=== PATIENT | female | born 1935 | race Caucasian/White ===

== ENCOUNTER 2018-01-09 10:02 | Inpatient (IN) ==
--- OUTSIDE RECORDS SUMMARY | 2018-01-09 12:00 | External Medical Summary | Referral Summary ---
:1935 Author Organization [facility] Address [address] [place] [address] Care Team Providers Name Role Phone Rickie Nunez Primary Care Physician Encounter VC Date(s): 08/22/17 - 08/22/17 [facility] [address] [place] [address] [place] Discharge Diagnosis: Atrial fibrillation Discharge Diagnosis: Cardiomyopathy Discharge Diagnosis: Chronic CHF Discharge Diagnosis: Nocturnal hypoxemia Discharge Diagnosis: Asthma with COPD Discharge Disposition: 01-Home or Self Care Attending Physician: Rickie Perez MD Admitting Physician: Rickie Perez MD Vital Signs Most recent to oldest [Reference Range]: 1 Peripheral Pulse Rate [60-100 bpm] 90 bpm (08/22/17 2:27 PM) Respiratory Rate [14-20 br/min] 18 br/min (08/22/17 2:27 PM) Blood Pressure [90-140/60-90 mmHg] 146/82 mmHg *HI* (08/22/17 2:27 PM) SpO2 96 % (08/22/17 2:27 PM) Problem List Condition Effective Dates Status Health Status Informant Acute pain(Confirmed) Active Allergic rhinitis/Hay fever(Confirmed) Active Asthma(Confirmed) Active Asthma with COPD(Confirmed) Active At risk of pressure sore(Confirmed) Active Atrial fibrillation(Confirmed) Active Bleeding problems(Confirmed) Active Cardiomyopathy(Confirmed) Active Carpal tunnel syndrome(Confirmed) 1986 Active Chronic CHF(Confirmed) Active Urine infections(Confirmed) Active Thyroid disease/Goiter(Confirmed) Active Enthesopathy of ankle and Active tarsus(Confirmed) Pulmonary fibrosis(Confirmed) 1999 Active GERD (gastroesophageal reflux Active disease)(Confirmed) Gout(Confirmed) 2006 Active History of angina(Confirmed) Active Hearing loss(Confirmed) Active Hernias(Confirmed) 1972 Active Hypercholesterolemia(Confirmed) Active Hypertension(Confirmed) Active Nocturnal hypoxemia(Confirmed) Active Impaired gas exchange(Confirmed)1 Active Ingrowing nail(Confirmed) Active Ileus(Confirmed) 08/15/04 Active Irritable bowel syndrome Active (IBS)(Confirmed) Red measles(Confirmed) 194 Active Mumps(Confirmed) 195 Active Obesity(Confirmed) Active Dermatophytosis of nail(Confirmed) Active Osteoarthritis(Confirmed) Active Osteopenia(Confirmed) 1997 Active Pain in limb(Confirmed) Active Peripheral vascular disease(Confirmed) Active Whooping cough(Confirmed) 193 Active Arabic measles(Confirmed) 194 Active Smallpox(Confirmed) Active Trigger thumb Lt(Confirmed) Active Problems with swallowing and Active hiccuping(Confirmed) Tissue perfusion Active alteration(Confirmed)2 Chicken pox(Confirmed) 1945 Active 1Problem added automatically by system based on initiation of Impaired Gas Exchange Plan of [id number] added automatically by system based on initiation of Tissue Perfusion Cerebral Plan of Care Allergies, Adverse Reactions, Alerts Substance Reaction Severity Status allopurinol Active doxycycline Active dexamethasone rash, itchy Active DOBUTamine Active metoclopramide Active omeprazole Active levofloxacin Active cefdinir Active cilostazol Active valdecoxib Active amLODIPine Active Medications amiodarone 200 mg oral tablet 200 mg 1 tabs, Oral, BID, 0 Refill(s) Start Date: 08/05/17 Status: OrderedCalcium 600+D See Instructions, 1 tab daily, 0 Refill(s) Start Date: 02/20/14 Status: OrderedColace 100 mg oral capsule 100 mg 1 caps, Oral, BID, as needed for constipation, # 20 caps, 0 Refill(s) Start Date: 02/20/14 Status: Ordereddigoxin 125 mcg (0.125 mg) oral tablet 125 mcg 1 tabs, Oral, Daily, 0 Refill(s) Start Date: 08/05/17 Status: OrderedDulcolax Laxative 10 mg rectal suppository 10 mg 1 supp, Rectal, Daily, Constipation, 0 Refill(s) Start Date: 08/05/17 Status: OrderedDuoNeb 0.5 mg-2.5 mg/3 mL inhalation solution 3 mL, NEB, q2hr (scheduled), Bronchospasms, 0 Refill(s) Start Date: 08/05/17 Status: Orderedenalapril 10 mg oral tablet 10 mg 1 tabs, Oral, Daily, 0 Refill(s) Start Date: 08/05/17 Status: Orderedfamotidine 20 mg oral tablet 20 mg 1 tabs, Oral, Daily, 0 Refill(s) Start Date: 08/05/17 Status: Orderedfurosemide 40 mg oral tablet 40 mg 1 tabs, Oral, BID, 0 Refill(s) Start Date: 08/05/17 Status: OrderedHome Oxygen (DME) DME Item APRIA 2.5 LPM NOCTURNAL, See Instructions, # 1 Each, 0 Refill(s), Supply Start Date: 08/22/17 Status: OrderedLibrax 5 mg-2.5 mg oral capsule 1 caps, Oral, Daily, as needed, 0 Refill(s) Start Date: 02/20/14 Status: OrderedMilk of Magnesia 30 mL, Oral, Bedtime (once a day), 0 Refill(s) Start Date: 02/20/14 Status: OrderedMiraLax oral powder for reconstitution 17 g, Oral, Daily, dissolve in water before taking, # 255 g, 0 Refill(s) Start Date: 07/29/17 Status: Orderedmultivitamin Daily, 0 Refill(s) Start Date: 02/20/14 Status: OrderedPeri-Colace 50 mg-8.6 mg oral tablet 1 tabs, Oral, Bedtime (once a day), 0 Refill(s) Start Date: 02/20/14 Status: Orderedpotassium chloride 20 mEq/15 mL oral liquid 20 mEq 15 mL, Oral, BIDWM, 0 Refill(s) Start Date: 08/05/17 Status: OrderedPulmicort Respules 0.5 mg/2 mL inhalation suspension 0.5 mg 2 mL, NEB, BID, # 120 mL, 0 Refill(s) Start Date: 02/20/14 Status: OrderedSynthroid 100 mcg (0.1 mg) oral tablet 100 mcg 1 tabs, Oral, Daily, 0 Refill(s) Start Date: 02/20/14 Status: OrderedSystane Eye-Both, Bedtime (once a day), 0 Refill(s) Start Date: 02/20/14 Status: OrderedTylenol Extra Strength 500 mg, Oral, q6hr, Pain Mild (1-3), 0 Refill(s) Start Date: 02/20/14 Status: OrderedVentolin HFA 90 mcg/inh inhalation aerosol 2 puffs, Inhalation, q4hr, as needed for wheezing, 0 Refill(s) Start Date: 07/29/17 Status: Orderedwarfarin 5 mg oral tablet 5 mg 1 tabs, Oral, Daily, 0 Refill(s) Start Date: 08/05/17 Status: Ordered Immunizations Given and Recorded Vaccine Date Status Refusal Reason influenza virus vaccine, inactivated 05/21/16 Given pneumococcal 13-valent conjugate vaccine 06/10/15 Given pneumococcal 23-polyvalent vaccine 07/20/11 Recorded zoster vaccine live 01/19/08 Recorded tetanus-diphth toxoids (Td) adult/adol 02/18/06 Recorded Procedures Procedure Date Related Diagnosis Body Site Cardiac catheterization 01/22/08 Cervical biopsy 09/27/06 Biopsy of breast Lt 2002 Hernia repair-wentral w/mesh 2002 Hospital admission-asthma 2002 Cardiac catheterization 02/13/00 Hernia repair-ventral1 1999 Colonoscopy 05/12/99 Esophagogastroduodenoscopy 05/12/99 Esophagogastroduodenoscopy 10/24/96 Hernia repair2 1996 Colonoscopy 08/07/96 Colonoscopy 04/28/93 Dilation and curettage 1992 Carpal tunnel release3 1986 Trigger thumb of left hand 1985 Cholecystectomy 1983 Hernia repair-umbilical, hiatal x3 1983 Procedure-esophogoscopy 06/09/76 Surgery-thyroid 1975 Procedure-esophogoscopy 06/21/73 Dilation and curettage 1972 section 1969 Procedure-bilateral greater and lesser sophemous 1960 ligation Appendectomy 1953 Tonsillectomy 1947 1see conversion [id number] conversion [id number] carpal tunnel and ulnar nerve compression-see conversion document Social History Social History Type Response Smoking Status Never (less than 100 in lifetime) entered on: 07/29/17
--- OUTSIDE RECORDS SUMMARY | 2018-01-09 12:01 | External Medical Summary | Referral Summary ---
:1935 Author Organization [facility] Address [address] [place] [address] Care Team Providers Name Role Phone Rickie Nunez Primary Care Physician Encounter VC Date(s): 07/29/17 - 07/29/17 [facility] [address] [place] [id number] Discharge Diagnosis: Atrial fibrillation with rapid ventricular response Discharge Diagnosis: Allergic rhinitis/Hay fever Discharge Diagnosis: Asthma with COPD Discharge Diagnosis: Nocturnal hypoxemia Discharge Diagnosis: Obesity Discharge Diagnosis: Physical deconditioning Discharge Disposition: 01-Home or Self Care Attending Physician: Rickie Perez MD Admitting Physician: Rickie Perez MD Vital Signs Most recent to oldest [Reference Range]: 1 Peripheral Pulse Rate [60-100 bpm] 124 bpm *HI* (07/29/17 9:03 AM) Respiratory Rate [14-20 br/min] 22 br/min *HI* (07/29/17 9:03 AM) Blood Pressure [90-140/60-90 mmHg] 118/62 mmHg (07/29/17 9:03 AM) SpO2 95 % (07/29/17 9:03 AM) Problem List Condition Effective Dates Status Health Status Informant Allergic rhinitis/Hay fever(Confirmed) Active Asthma(Confirmed) Active Asthma with COPD(Confirmed) Active At risk of pressure sore(Confirmed) Active Bleeding problems(Confirmed) Active Carpal tunnel syndrome(Confirmed) 1986 Active Urine infections(Confirmed) Active Thyroid disease/Goiter(Confirmed) Active Enthesopathy of ankle and Active tarsus(Confirmed) Pulmonary fibrosis(Confirmed) 1999 Active GERD (gastroesophageal reflux Active disease)(Confirmed) Gout(Confirmed) 2006 Active History of angina(Confirmed) Active Hearing loss(Confirmed) Active Hernias(Confirmed) 1971 Active Hypercholesterolemia(Confirmed) Active Hypertension(Confirmed) Active Nocturnal hypoxemia(Confirmed) Active Impaired gas exchange(Confirmed)1 Active Ingrowing nail(Confirmed) Active Ileus(Confirmed) 08/15/04 Active Irritable bowel syndrome Active (IBS)(Confirmed) Red measles(Confirmed) 194 Active Mumps(Confirmed) 1953 Active Obesity(Confirmed) Active Dermatophytosis of nail(Confirmed) Active Osteoarthritis(Confirmed) Active Osteopenia(Confirmed) 1997 Active Pain in limb(Confirmed) Active Peripheral vascular disease(Confirmed) Active Whooping cough(Confirmed) 193 Active Jamaican measles(Confirmed) 1946 Active Smallpox(Confirmed) Active Trigger thumb Lt(Confirmed) Active Problems with swallowing and Active hiccuping(Confirmed) Tissue perfusion Active alteration(Confirmed)2 Chicken pox(Confirmed) 1945 Active 1Problem added automatically by system based on initiation of Impaired Gas Exchange Plan of [id number] added automatically by system based on initiation of Tissue Perfusion Cerebral Plan of Care Allergies, Adverse Reactions, Alerts Substance Reaction Severity Status allopurinol Active doxycycline Active dexamethasone rash, itchy Active DOBUTamine Active metoclopramide Active omeprazole Active levofloxacin Active cefdinir Active cilostazol Active valdecoxib Active amLODIPine Active Medications Calcium 600+D See Instructions, 1 tab daily, 0 Refill(s) Start Date: 02/20/14 Status: OrderedColace 100 mg oral capsule 100 mg 1 caps, Oral, BID, as needed for constipation, # 20 caps, 0 Refill(s) Start Date: 02/20/14 Status: OrderedDuoNeb 0.5 mg-2.5 mg/3 mL inhalation solution 3 mL, Inhalation, TID, 0 Refill(s) Start Date: 10/11/14 Status: OrderedLibrax 5 mg-2.5 mg oral capsule 1 caps, Oral, Daily, as needed, 0 Refill(s) Start Date: 02/20/14 Status: Orderedmagnesium chloride 300 mg, 0 Refill(s) Start Date: 02/20/14 Status: Orderedmeloxicam 7.5 mg oral tablet 7.5 mg 1 tabs, Oral, Daily, 0 Refill(s) Start Date: 02/20/14 Status: OrderedMilk [...] day), 0 Refill(s) Start Date: 02/20/14 Status: OrderedPulmicort Respules 0.5 mg/2 mL inhalation [...] wheezing, 0 Refill(s) Start Date: 07/29/17 Status: Ordered Immunizations Given and Recorded Vaccine Date Status Refusal Reason influenza virus vaccine, inactivated 05/21/16 Given pneumococcal 13-valent conjugate vaccine 06/10/15 Given pneumococcal 23-polyvalent vaccine 07/20/11 Recorded zoster vaccine live 01/19/08 Recorded tetanus-diphth toxoids (Td) adult/adol 02/18/06 Recorded Procedures Procedure Date Related Diagnosis Body Site Cardiac catheterization 01/22/08 Cervical biopsy 09/27/06 Biopsy of breast Lt 2002 Hernia repair-wentral w/mesh 2002 Hospital admission-asthma 2003 Cardiac catheterization 02/13/00 Hernia repair-ventral1 1999 Colonoscopy 05/12/99 Esophagogastroduodenoscopy 05/12/99 Esophagogastroduodenoscopy 10/24/96 Hernia repair2 1996 Colonoscopy 08/07/96 Colonoscopy 04/28/93 Dilation and curettage 1992 Carpal tunnel release3 1987 Trigger thumb of left hand 1986 Cholecystectomy 1984 Hernia repair-umbilical, hiatal x3 1984 Procedure-esophogoscopy 06/09/76 Surgery-thyroid 1975 Procedure-esophogoscopy 06/21/73 Dilation and curettage 1972 section 1969 Procedure-bilateral greater and lesser sophemous 1960 ligation Appendectomy 1953 Tonsillectomy 1947 1see conversion [id number] conversion [id number] carpal tunnel and ulnar nerve compression-see conversion document Social History Social History Type Response Smoking Status Never (less than 100 in lifetime) entered on: 07/29/17 Assessment and Plan Extracted from: Title: Office Visit Note Author: Rickie Perez MD Date: 07/29/17 1.Atrial fibrillation with rapid ventricular response 2.Asthma with COPD Ordered: EKG (AMB) 3.Allergic rhinitis/Hay fever Ordered: EKG (AMB) 4.Obesity Ordered: EKG (AMB) 5.Nocturnal hypoxemia Ordered: EKG (AMB) 6.Physical deconditioning I suspectthe patient'sincrease in shortness of breath and fatigue is due to the fact that she is now in atrial fibrillation. At the time of her previous visitchelle Rosas was noted to havere gular heart rate and rhythm with arate of 68. I discussedthe findings with the patientand her . Given the patient's multiple medical problems and disabilityI feel she can best be shauna gedas an inpatient. I've recommended hospital admission and cardiac consultation.
--- OUTSIDE RECORDS SUMMARY | 2018-01-09 12:01 | External Medical Summary | Referral Summary ---
:1935 Author Organization Via [facility] Address [address] [place] [address] Care Team Providers Name Role Phone Rickie Nunez Primary Care Physician Encounter VC Date(s): 07/29/17 - 08/05/17 [facility] [address] [place] [address] [place] [phone] Discharge Disposition: 62-Inpatient Rehab Facility Attending Physician: Keron Donnelly MD Admitting Physician: Jayashree Tinajero MD Vital Signs Most recent to oldest [Reference Range]: 1 Temperature Oral [35.8-37.3 degC] 36.8 degC (08/05/17 4:40 PM) Temperature Temporal Artery [36.3-37.8 degC] 36.4 degC (08/02/17 11:49 AM) Apical Heart Rate [60-100 bpm] 83 bpm (08/05/17 11:50 AM) Peripheral Pulse Rate [60-100 bpm] 82 bpm (08/05/17 4:40 PM) Heart Rate Monitored [60-100 bpm] 78 bpm (08/05/17 9:17 AM) Respiratory Rate [14-20 br/min] 18 br/min (08/05/17 4:40 PM) Blood Pressure [90-140/60-90 mmHg] 130/69 mmHg (08/05/17 4:40 PM) Mean Arterial Pressure, Cuff 95 mmHg (08/02/17 1:00 PM) Pulse Rate [60-100 bpm] 80 bpm (08/04/17 8:41 AM) SpO2 94 % (08/05/17 4:40 PM) Remote Telemetry Ongoing (08/04/17 9:51 PM) Blood Pressure Location Left arm (08/04/17 9:51 PM) Problem List Condition Effective Dates Status [...] vascular disease(Confirmed) Active Whooping cough(Confirmed) 193 Active Cape Verdean measles(Confirmed) 194 Active Smallpox(Confirmed) Active Trigger thumb Lt(Confirmed) Active Problems with swallowing and Active hiccuping(Confirmed) Tissue perfusion Active alteration(Confirmed)2 Chicken pox(Confirmed) 1945 Active 1Problem added automatically by system based on initiation of Impaired Gas Exchange Plan of [id number] added automatically by system based on initiation [...] BID, 0 Refill(s) Start Date: 08/05/17 Status: OrderedLibrax 5 mg-2.5 mg oral capsule [...] 0 Refill(s) Start Date: 08/05/17 Status: Ordered Results Hematology Most recent to oldest [Reference Range]: 1 WBC [4.8-10.8 10*3/uL] 10.1 10*3/uL (08/04/17 5:10 AM) RBC [4.00-5.20] 4.45 (08/04/17 5:10 AM) Hgb [12.0-16.0 gm/dL] 14.3 gm/dL (08/04/17 5:10 AM) Hct [37.0-47.0 %] 43.6 % (08/04/17 5:10 AM) MCV [82.0-99.0 fL] 98.0 fL (08/04/17 5:10 AM) MCH [27.0-32.0 pg] 32.1 pg *HI* (08/04/17 5:10 AM) MCHC [32.0-36.0 gm/dL] 32.8 gm/dL (08/04/17 5:10 AM) RDW [11.5-14.5 %] 13.9 % (08/04/17 5:10 AM) Platelet [150-400 10*3/uL] 154 10*3/uL (08/04/17 5:10 AM) MPV [9.4-12.4 fL] 10.2 fL (08/04/17 5:10 AM) Immature Granulocytes [0.0-1.0 %] 0.2 % (07/30/17 5:02 AM) Neutrophils [51-75 %] 67 % (07/30/17 5:02 AM) Lymphocytes [20-46 %] 16 % *LOW* (07/30/17 5:02 AM) Monocytes [4-11 %] 11 % (07/30/17 5:02 AM) Eosinophils [0-4 %] 6 % *HI* (07/30/17 5:02 AM) Basophils [0-2 %] 0 % (07/30/17 5:02 AM) Neutro Absolute [1.90-7.00] 4.23 (07/30/17 5:02 AM) Lymph Absolute [0.80-3.30] 1.00 (07/30/17 5:02 AM) [place] Absolute [0.30-1.00] 0.66 (07/30/17 5:02 AM) Eos Absolute [0.00-0.50] 0.37 (07/30/17 5:02 AM) Baso Absolute [0.00-0.20] 0.02 (07/30/17 5:02 AM) Nucleated RBC Automated [0 /100 WBC] 0.0 /100 WBC (07/30/17 5:02 AM) Differential Scanned Slide (07/29/17 1:57 PM) Coagulation Most recent to oldest [Reference Range]: 1 INR [0.9-1.2] 2.3 *HI* (08/04/17 5:10 AM) Chemistry Most recent to oldest [Reference Range]: 1 Sodium Lvl [136-144 mEq/L] 134 mEq/L *LOW* (08/03/17 5:17 AM) Potassium Lvl [3.6-5.1 mEq/L] 4.3 mEq/L (08/03/17 5:17 AM) Chloride [99-109 mEq/L] 95 mEq/L *LOW* (08/03/17 5: AM) CO2 [22-32 mEq/L] 31 mEq/L (08/03/17 5:17 AM) AGAP [3-20 mEq/L] 8 mEq/L (08/03/17 5:17 AM) BUN [4-20 mg/dL] 21 mg/dL *HI* (08/03/17 5:17 AM) Glucose Lvl [70-100 mg/dL] 113 mg/dL *HI* (08/03/17 5:17 AM) Creatinine Lvl [0.44-1.03 mg/dL] 0.80 mg/dL (08/03/17 5:17 AM) eGFR [>60 mL/min] >60 mL/min 1 (08/03/17 5:17 AM) Calcium Lvl [8.6-10.0 mg/dL] 9.7 mg/dL (08/03/17 5:17 AM) Albumin Lvl [3.5-4.8 gm/dL] 3.7 gm/dL (07/29/17 3:27 PM) Total Protein [6.1-7.9 gm/dL] 6.6 gm/dL (07/29/17 3:27 PM) Globulin [1.9-4.3 gm/dL] 2.9 gm/dL (07/29/17 3:27 PM) ALT [14-54 U/L] 42 U/L (07/29/17 3:27 PM) AST [15-41 U/L] 34 U/L (07/29/17 3:27 PM) Alk Phos [26-104 U/L] 66 U/L (07/29/17 3:27 PM) Bili Total [0.2-1.2 mg/dL] 0.9 mg/dL 2 (07/29/17 3:27 PM) Magnesium Lvl [1.8-2.5 mg/dL] 2.1 mg/dL (08/04/17 5:10 AM) Phosphorus [2.4-4.7 mg/dL] 2.8 mg/dL 3 (07/29/17 3:27 PM) BNP [0-99 pg/mL] 172 pg/mL *HI* (08/05/17 5:41 AM) Troponin [<0.06 ng/mL] <0.05 ng/mL (07/29/17 9:09 PM) Lipase Lvl [8-48 U/L] 21 U/L (07/29/17 3:27 PM) Chol [0-199 mg/dL] 134 mg/dL (07/31/17 4:29 AM) Trig [0-149 mg/dL] 47 mg/dL (07/31/17 4:29 AM) HDL [40-84 mg/dL] 53 mg/dL (07/31/17 4:29 AM) LDL [0-130 mg/dL] 72 mg/dL (07/31/17 4:29 AM) VLDL Cholesterol [0-28 mg/dL] 9 mg/dL (07/31/17 4:29 AM) Cardiac Risk [0.0-5.0] 2.5 (07/31/17 4:29 AM) TSH with Reflex Free T4 [0.35-4.94] 4.06 (07/30/17 5:02 AM) Procalcitonin [0.00-0.09 ng/mL] 0.06 ng/mL 4 (07/31/17 4:29 AM) 1Result Comment: Multiply eGFR results by 1.21 for race.2Result Comment: Naproxen, specifically the metabolite O-desmethylnaproxen, may cause spurious elevation in Total Bilirubin levels.3Result Comment: High dosages of liposomal Amphotericin B (AmBisome) therapy or other drug preparations that use a liposomal envelope to facilitate drug delivery may cause falsely elevated results for phosphorus.4Result Comment: Normal: <0.1 ng/mL (infants >72 hrs - adults) Suspected Lower Respiratory Tract Infection 0.10-0.25 ng/mL=Low likelihood for bacterial infection; Antibiotics discouraged. >0.25 ng/mL=Increased likelihood for bacterial infection; Antibiotics encouraged. Suspected Sepsis: Strongly consider initiating antibiotics in all unstable patients. 0.10-0.50 ng/mL=Low likelihood for sepsis; Antibiotics discouraged. >0.50 ng/mL=Increased likelihood for sepsis; Antibiotics encouraged. Decisions on antibiotic use should not be based solely on procalcitonin levels. If antibiotics are administered, repeat procalcitonin testing should be obtained every 2-3 days to consider early antibiotic cessation. PCT is a dynamic biomarker and most useful when trends are analyzed over time in accompaniment with other clinical data. Interpretation should be based upon clinical context and algorithms. Immunizations Given and Recorded Vaccine Date Status Refusal Reason influenza virus vaccine, inactivated 05/21/16 Given pneumococcal 13-valent conjugate vaccine 06/10/15 Given pneumococcal 23-polyvalent vaccine 07/20/11 Recorded zoster vaccine live 01/19/08 Recorded tetanus-diphth toxoids (Td) adult/adol 02/18/06 Recorded Procedures Procedure Date Related Diagnosis Body Site Insertion of peripherally inserted central 07/31/17 venous catheter (PICC), without subcutaneous port or pump; age 5 years or older.. Cardiac catheterization 01/22/08 Cervical biopsy 09/27/06 Biopsy of breast Lt 2002 Hernia repair-wentral w/mesh 2002 Hospital admission-asthma 2002 Cardiac catheterization 02/13/00 Hernia repair-ventral1 1999 Colonoscopy 05/12/99 Esophagogastroduodenoscopy 05/12/99 Esophagogastroduodenoscopy 10/24/96 Hernia repair2 1996 Colonoscopy 08/07/96 Colonoscopy 04/28/93 Dilation and curettage 1992 Carpal tunnel release3 1987 Trigger thumb of left hand 1985 Cholecystectomy 1983 Hernia repair-umbilical, hiatal x3 1983 Procedure-esophogoscopy 06/09/76 Surgery-thyroid 1975 Procedure-esophogoscopy 06/21/73 Dilation and curettage 1971 section 1969 Procedure-bilateral greater and lesser sophemous 1960 ligation Appendectomy 1953 Tonsillectomy 1947 1see conversion [id number] conversion [id number] carpal tunnel and ulnar nerve compression-see conversion document Social History Social History Type Response Smoking Status Never (less than 100 in lifetime) entered on: 07/29/17
--- OUTSIDE RECORDS SUMMARY | 2018-01-09 12:01 | External Medical Summary | Referral Summary ---
:1935 Author Organization [facility] Address [address] [place] [address] Care Team Providers Name Role Phone Rickie Nunez Primary Care Physician Encounter VC Date(s): 06/10/15 - 06/10/15 [facility] [address] [place] [address]- us Discharge Diagnosis: Need for influenza vaccination Discharge Disposition: 01-Home or Self Care Attending Physician: Rickie Perez MD Admitting Physician: Rickie Perez MD Vital Signs Most recent to oldest [Reference Range]: 1 Peripheral Pulse Rate [60-100 bpm] 66 bpm (06/10/15 2:18 PM) Respiratory Rate [14-20 br/min] 18 br/min (06/10/15 2:18 PM) Blood Pressure [90-140/60-90 mmHg] 130/74 mmHg (06/10/15 2:18 PM) SpO2 96 % (06/10/15 2:18 PM) Problem List Condition Effective Dates Status Health Status Informant Allergic rhinitis/Hay fever(Confirmed) Active Asthma(Confirmed) Active Bleeding problems(Confirmed) Active Carpal tunnel syndrome(Confirmed) 1986 Active Urine infections(Confirmed) Active Thyroid disease/Goiter(Confirmed) Active Enthesopathy of ankle and Active tarsus(Confirmed) Pulmonary fibrosis(Confirmed) 1999 Active GERD (gastroesophageal reflux Active disease)(Confirmed) Gout(Confirmed) 2006 Active History of angina(Confirmed) Active Hearing loss(Confirmed) Active Hernias(Confirmed) 1971 Active Hypercholesterolemia(Confirmed) Active Hypertension(Confirmed) Active Ingrowing nail(Confirmed) Active Ileus(Confirmed) 08/15/04 Active Irritable bowel syndrome Active (IBS)(Confirmed) Red measles(Confirmed) 1939 Active Mumps(Confirmed) Active Dermatophytosis of nail(Confirmed) Active Osteoarthritis(Confirmed) Active Osteopenia(Confirmed) 1997 Active Pain in limb(Confirmed) Active Peripheral vascular disease(Confirmed) Active Whooping cough(Confirmed) 193 Active Urdu measles(Confirmed) 194 Active Smallpox(Confirmed) Active Trigger thumb Lt(Confirmed) Active Problems with swallowing and Active hiccuping(Confirmed) Chicken pox(Confirmed) 194 Active Allergies, Adverse Reactions, Alerts Substance Reaction Severity Status allopurinol Active amLODIPine Active cefdinir Active cilostazol Active dexamethasone rash, itchy Active DOBUTamine Active doxycycline Active levofloxacin Active metoclopramide Active omeprazole Active valdecoxib Active Medications Calcium 600+D See Instructions, 1 tab daily, 0 Refill(s) Start Date: 02/20/14 Status: OrderedColace 100 mg oral capsule 1 caps, Oral, BID, as needed for constipation, # 20 caps, 0 Refill(s) Start Date: 02/20/14 Status: OrderedDulcolax Stool Softener See Instructions, 1 tab as needed, 0 Refill(s) Start Date: 06/10/15 Status: OrderedDuoNeb 0.5 mg-2.5 mg/3 mL inhalation solution mL, Inhalation, QID, 0 Refill(s) Start Date: 10/11/14 Status: OrderedHome Oxygen (DME) DME Item 2.5 LPM at bedtime (apria), See Instructions, # 1 Each, 0 Refill(s), Supply Start Date: 06/10/15 Status: Orderedlansoprazole 30 mg oral tablet, disintegrating 1 tabs, Oral, Daily, # 30 tabs, 0 Refill(s) Start Date: 10/11/14 Status: OrderedLibrax 5 mg-2.5 mg oral capsule 1 caps, Oral, As Indicated, 0 Refill(s) Start Date: 02/20/14 Status: Orderedmagnesium chloride 300 mg, 0 Refill(s) Start Date: 02/20/14 Status: Orderedmeloxicam 7.5 mg oral tablet 1 tabs, Oral, Daily, 0 Refill(s) Start Date: 02/20/14 Status: OrderedMilk of Magnesia Oral, Bedtime (once a day), 0 Refill(s) Start Date: 02/20/14 Status: OrderedMiraLax 17 g, Oral, Daily, 0 Refill(s) Start Date: 06/10/15 Status: Orderedmultivitamin Daily, 0 Refill(s) Start Date: 02/20/14 Status: OrderedPeri-Colace 50 mg-8.6 mg oral tablet 1 tabs, Oral, Bedtime (once a day), 0 Refill(s) Start Date: 02/20/14 Status: OrderedpredniSONE 10 mg oral tablet See Instructions, Take 2 tablets daily for 7 days, then take 1 tablet daily for 7 days., # 21 tabs, 0 Refill(s), Pharmacy: [id number], Take 2 tablets daily for 7 days, then take 1 tablet daily for 7 days. Start Date: 06/10/15 Stop Date: 06/28/15 Status: OrderedPulmicort Respules 0.5 mg/2 mL inhalation suspension 2 mL, NEB, BID, # 120 mL, 0 Refill(s) Start Date: 02/20/14 Status: OrderedSynthroid 100 mcg (0.1 mg) oral tablet 1 tabs, Oral, Daily, 0 Refill(s) Start Date: 02/20/14 Status: OrderedSystane Eye-Both, Bedtime (once a day), 0 Refill(s) Start Date: 02/20/14 Status: OrderedTylenol Extra Strength 500 mg, Oral, q6hr, 0 Refill(s) Start Date: 02/20/14 Status: OrderedVentolin HFA 90 mcg/inh inhalation aerosol 2 puffs, Inhalation, QID, 0 Refill(s) Start Date: 02/20/14 Status: Ordered Results No data available for this section Immunizations Vaccine Date Refusal Reason pneumococcal 13-valent conjugate vaccine 06/10/15 pneumococcal 23-polyvalent vaccine 07/20/11 tetanus-diphth toxoids (Td) adult/adol 02/18/06 zoster vaccine live 01/19/08 Procedures Procedure Date Related Diagnosis Body Site Cardiac catheterization 01/22/08 Cervical biopsy 09/27/06 Biopsy of breast Lt 2002 Hernia repair-wentral w/mesh 2002 Hospital admission-asthma 2003 Cardiac catheterization 02/13/00 Hernia repair-ventral1 1999 Colonoscopy 05/12/99 Esophagogastroduodenoscopy 05/12/99 Esophagogastroduodenoscopy 10/24/96 Hernia repair2 1996 Colonoscopy 08/07/96 Colonoscopy 04/28/93 Dilation and curettage 1992 Carpal tunnel release3 1986 Trigger thumb of left hand 1986 Cholecystectomy 1984 Hernia repair-umbilical, hiatal x3 1983 Procedure-esophogoscopy 06/09/76 Surgery-thyroid 1976 Procedure-esophogoscopy 06/21/73 Dilation and curettage 1971 section 1969 Procedure-bilateral greater and lesser sophemous 1961 ligation Appendectomy 1953 Tonsillectomy 1947 1see conversion [id number] conversion [id number] carpal tunnel and ulnar nerve compression-see conversion document Social History Social History Type Response Smoking Status Never smoker Assessment and Plan No data available for this section
--- OUTSIDE RECORDS SUMMARY | 2018-01-09 12:01 | External Medical Summary | Referral Summary ---
:1935 Author Organization [facility] Address [address] [place] [address] Care Team Providers Name Role Phone Rickie Nunez Primary Care Physician Encounter VC Date(s): 05/21/16 - 05/21/16 [facility] [address] [place] [address]- [place] Discharge Diagnosis: Asthma with COPD Discharge Diagnosis: Allergic rhinitis Discharge Diagnosis: Physical deconditioning Discharge Diagnosis: Obesity Discharge Diagnosis: Nocturnal hypoxia Discharge Disposition: 01-Home or Self Care Attending Physician: Rickie Perez MD Admitting Physician: Rickie Perez MD Vital Signs Most recent to oldest [Reference Range]: 1 Peripheral Pulse Rate [60-100 bpm] 68 bpm (05/21/16 10:48 AM) Respiratory Rate [14-20 br/min] 20 br/min (05/21/16 10:48 AM) Blood Pressure [90-140/60-90 mmHg] 138/72 mmHg (05/21/16 10:48 AM) SpO2 97 % (05/21/16 10:48 AM) Problem List Condition Effective Dates Status Health Status Informant Allergic rhinitis/Hay fever(Confirmed) Active Asthma(Confirmed) Active Bleeding problems(Confirmed) Active Carpal tunnel syndrome(Confirmed) 1986 Active Urine infections(Confirmed) Active Thyroid disease/Goiter(Confirmed) Active Enthesopathy of ankle and Active tarsus(Confirmed) Pulmonary fibrosis(Confirmed) 1999 Active GERD (gastroesophageal reflux Active disease)(Confirmed) Gout(Confirmed) 2006 Active History of angina(Confirmed) Active Hearing loss(Confirmed) Active Hernias(Confirmed) 1972 Active Hypercholesterolemia(Confirmed) Active Hypertension(Confirmed) Active Ingrowing nail(Confirmed) Active Ileus(Confirmed) 08/15/04 Active Irritable bowel syndrome Active (IBS)(Confirmed) Red measles(Confirmed) 194 Active Mumps(Confirmed) 1953 Active Dermatophytosis of nail(Confirmed) Active Osteoarthritis(Confirmed) Active Osteopenia(Confirmed) 1997 Active Pain in limb(Confirmed) Active Peripheral vascular disease(Confirmed) Active Whooping cough(Confirmed) 193 Active Vietnamese measles(Confirmed) 194 Active Smallpox(Confirmed) Active Trigger thumb [...] caps, 0 Refill(s) Start Date: 02/20/14 Status: OrderedDiflucan 100 mg oral tablet 100 mg 1 tabs, Oral, Daily, X 3 days, # 3 tabs, 0 Refill(s), Pharmacy: [id number], 1 tabs Oral Daily,x3 days Start Date: 05/21/16 Stop Date: 05/24/16 Status: OrderedDulcolax Stool Softener See Instructions, 1 tab as needed, 0 Refill(s) Start Date: 06/10/15 Status: OrderedDuoNeb 0.5 mg-2.5 mg/3 mL inhalation solution mL, Inhalation, QID, 0 Refill(s) Start Date: 10/11/14 Status: OrderedHome Oxygen (DME) DME Item 2.5 LPM at bedtime (apria), See Instructions, # 1 Each, 0 Refill(s), Supply Start Date: 06/10/15 Status: OrderedLibrax 5 mg-2.5 mg oral capsule [...] this section Immunizations Vaccine Date Refusal Reason influenza virus vaccine, inactivated 05/21/16 pneumococcal 13-valent conjugate vaccine 06/10/15 pneumococcal 23-polyvalent vaccine 07/20/11 tetanus-diphth toxoids (Td) adult/adol 02/18/06 zoster vaccine live 01/19/08 Procedures Procedure Date Related Diagnosis Body Site Cardiac catheterization 01/22/08 Cervical biopsy 09/27/06 Biopsy of breast Lt 2002 Hernia repair-wentral w/mesh 2003 Hospital admission-asthma 2003 Cardiac catheterization 02/13/00 Hernia repair-ventral1 1999 Colonoscopy 05/12/99 Esophagogastroduodenoscopy 05/12/99 Esophagogastroduodenoscopy 10/24/96 Hernia repair2 1996 Colonoscopy 08/07/96 Colonoscopy 04/28/93 Dilation and curettage 1992 Carpal tunnel release3 1987 Trigger thumb of left hand 1986 Cholecystectomy 1984 Hernia repair-umbilical, hiatal x3 1983 Procedure-esophogoscopy 06/09/76 Surgery-thyroid 1975 Procedure-esophogoscopy 06/21/73 Dilation and curettage 1972 section 1969 Procedure-bilateral greater and lesser sophemous 196 ligation Appendectomy 1953 Tonsillectomy 1947 1see conversion [id number] conversion pizaufud4xctohgqvg carpal tunnel and ulnar nerve compression-see conversion document Social History Social History Type Response Smoking Status Never smoker Assessment and Plan Extracted from: Title: Office Visit Note Author: Rickie Perez MD Date: 05/21/16 Assessment/Plan 1.Asthma with COPD 2.Allergic rhinitis 3.Obesity 4.Physical deconditioning 5.Nocturnal hypoxia Need for vaccination I've recommended patient continue current medications including the use of supplemental oxygen at night. I did give her Diflucan 100 mg daily for 3 days treatment of thrush. She did receive a flu shot in the office today. Follow-up visit is planned in 6 months or sooner if need be.
--- OUTSIDE RECORDS SUMMARY | 2018-01-09 12:01 | External Medical Summary | Referral Summary ---
:1935 Author Care Team Providers Name Role Phone Rickie Nunez Primary Care Physician Encounter [facility] [id number] Date(s): 10/11/14 - 10/11/14 [facility] [address] [place] [id number] Discharge Diagnosis: Asthma Discharge Diagnosis: Obesity Discharge Diagnosis: Allergic rhinitis Discharge Disposition: Home or Self Care Attending Physician: Rickie Perez MD Admitting Physician: Rickie Perez MD Vital Signs Most recent to oldest [Reference Range]: 1 Temperature Tympanic [36.6-38.1 degC] 36.6 degC (10/11/14 10:25 AM) Peripheral Pulse Rate [60-100 bpm] 66 bpm (10/11/14 10:25 AM) Respiratory Rate [14-20 br/min] 18 br/min (10/11/14 10:25 AM) Blood Pressure [90-140/60-90 mmHg] 124/74 mmHg (10/11/14 10:25 AM) Most recent to oldest [Reference Range]: 1 SpO2 97 % (10/11/14 10:25 AM) Problem List Condition Effective Dates Status [...] Active (IBS)(Confirmed) Red measles(Confirmed) 1939 Active Mumps(Confirmed) 1953 Active Dermatophytosis of nail(Confirmed) Active Osteoarthritis(Confirmed) Active Osteopenia(Confirmed) 1997 Active Pain in limb(Confirmed) Active Peripheral vascular disease(Confirmed) Active Whooping cough(Confirmed) 193 Active Citizen Of [place] measles(Confirmed) 194 Active Smallpox(Confirmed) Active Trigger thumb Lt(Confirmed) Active Problems with swallowing and Active hiccuping(Confirmed) Chicken pox(Confirmed) 194 Active Allergies, Adverse Reactions, Alerts Substance Reaction Severity Status allopurinol Active amLODIPine Active cefdinir Active cilostazol Active dexamethasone rash, itchy Active DOBUTamine Active doxycycline Active levofloxacin Active metoclopramide Active omeprazole Active valdecoxib Active Medications Calcium 600+D tabs, Oral, TID, 0 Refill(s) Start Date: 02/20/14 Status: OrderedColace 100 mg oral capsule 1 caps, Oral, BID, as needed for constipation, # 20 caps, 0 Refill(s) Start Date: 02/20/14 Status: OrderedDuoNeb 0.5 mg-2.5 mg/3 mL inhalation solution 3 mL, Inhalation, QID, 0 Refill(s) Start Date: 02/20/14 Status: OrderedDuoNeb 0.5 mg-2.5 mg/3 mL inhalation solution mL, Inhalation, QID, 0 Refill(s) Start Date: 10/11/14 Status: Orderedlansoprazole 30 mg oral tablet, disintegrating 1 tabs, Oral, Daily, # 30 tabs, 0 Refill(s) Start Date: 10/11/14 Status: OrderedLibrax 5 mg-2.5 mg oral capsule 1 caps, Oral, 0 Refill(s) Start Date: 02/20/14 Status: Orderedmagnesium chloride 300 mg, 0 Refill(s) Start Date: 02/20/14 Status: Orderedmeloxicam 7.5 mg oral tablet 1 tabs, Oral, Daily, 0 Refill(s) Start Date: 02/20/14 Status: OrderedMilk of Magnesia Oral, Bedtime (once a day), 0 Refill(s) Start Date: 02/20/14 Status: Orderedmultivitamin Daily, 0 Refill(s) Start Date: 02/20/14 Status: OrderedPeri-Colace 50 mg-8.6 mg oral tablet 1 tabs, Oral, Bedtime (once a day), 0 Refill(s) Start Date: 02/20/14 Status: OrderedProbiotic Formula oral capsule caps, Oral, Daily, 0 Refill(s) Start Date: 10/11/14 Status: OrderedPulmicort Respules 0.5 mg/2 mL inhalation suspension 2 mL, NEB, BID, # 120 mL, 0 Refill(s) Start Date: 02/20/14 Status: OrderedRefresh Optive Advanced drops, Eye-Both, BID, 0 Refill(s) Start Date: 02/20/14 Status: OrderedSynthroid 100 mcg (0.1 mg) oral tablet 1 tabs, Oral, Daily, 0 Refill(s) Start Date: 02/20/14 Status: OrderedSystane Eye-Both, BID, 0 Refill(s) Start Date: 02/20/14 Status: OrderedTylenol Extra Strength 500 mg, Oral, q6hr, 0 Refill(s) Start Date: 02/20/14 Status: OrderedVentolin HFA 90 mcg/inh inhalation aerosol 2 puffs, Inhalation, QID, 0 Refill(s) Start Date: 02/20/14 Status: Ordered Results No data available for this section Immunizations Vaccine Date Refusal Reason pneumococcal 23-polyvalent vaccine 07/20/11 tetanus-diphth toxoids (Td) [...] ligation Appendectomy 1953 Tonsillectomy 1947 1see conversion [id number] conversion pydxoavq0muzliycim carpal tunnel and ulnar nerve compression-see conversion document Social History Social History Type Response Smoking Status Never smoker Assessment and Plan Extracted from: Title: Admission H & P Author: Rickie Perez MD Date: 10/11/14 Assessment/Plan Allergic rhinitis Asthma Obesity Patient will typically will require the use of albuterol in her nebulizer mid day. I've recommended that we replace the morning dose of albuterol with Brovana - a long-acting beta agonist. Hopefull y this will decrease the need for albuterol during the day. She was given samples of this medication. I've asked that she call our office in the next 2- 3 weeks and report. Follow-up visit is planned approximate 6 months or sooner if need be.
--- OUTSIDE RECORDS SUMMARY | 2018-01-09 12:01 | External Medical Summary | Referral Summary ---
:1935 Author Organization [facility] Address [address] [place] [address] Care Team Providers Name Role Phone Rickie Nunez Primary Care Physician Encounter VC Date(s): 11/19/15 - 11/19/[address] [facility] [address] [place] [address]- [place] Discharge Diagnosis: Asthma with COPD Discharge Diagnosis: Nocturnal hypoxemia Discharge Diagnosis: Allergic rhinitis Discharge Diagnosis: Obesity Discharge Disposition: 01-Home or Self Care Attending Physician: Rickie Perez MD Admitting Physician: Rickie Perez MD Vital Signs Most recent to oldest [Reference Range]: 1 Peripheral Pulse Rate [60-100 bpm] 73 bpm (11/19/15 2:11 PM) Respiratory Rate [14-20 br/min] 26 br/min *HI* (11/19/15 2:11 PM) Blood Pressure [90-140/60-90 mmHg] 138/70 mmHg (11/19/15 2:11 PM) SpO2 96 % (11/19/15 2:11 PM) Problem List Condition Effective Dates Status [...] Irritable bowel syndrome Active (IBS)(Confirmed) Red measles(Confirmed) 1940 Active Mumps(Confirmed) 1953 Active Dermatophytosis of nail(Confirmed) Active Osteoarthritis(Confirmed) Active Osteopenia(Confirmed) 1997 Active Pain in limb(Confirmed) Active Peripheral vascular disease(Confirmed) Active Whooping cough(Confirmed) 193 Active Bengali measles(Confirmed) 194 Active Smallpox(Confirmed) Active Trigger thumb [...] Surgery-thyroid 1976 Procedure-esophogoscopy 06/21/73 Dilation and curettage 1972 section 1968 Procedure-bilateral greater and lesser sophemous 1960 ligation Appendectomy 1953 Tonsillectomy 1947 1see conversion egemrpbc0ufv conversion [id number] carpal tunnel and ulnar nerve compression-see conversion document Social History Social History Type Response Smoking Status Never smoker Assessment and Plan Extracted from: Title: Office Visit Note Author: Rickie Perez MD Date: 11/19/15 Assessment/Plan 1.Asthma with COPD 2.Allergic rhinitis 3.Obesity 4.Nocturnal hypoxemia I've recommended patient continue her current medications as prescribed. A follow-up visit is planned in the proximally 6-8 months or sooner if need be.
--- OUTSIDE RECORDS SUMMARY | 2018-01-09 12:02 | External Medical Summary | Referral Summary ---
:1935 Author Organization [facility] Address [address] [place] [address] Care Team Providers Name Role Phone Rickie Nunez Primary Care Physician Encounter VC Date(s): 06/10/15 - 06/10/15 [facility] [address] [place] [address]- [place] Discharge Diagnosis: Asthma with COPD Discharge Diagnosis: Need for influenza vaccination Discharge Diagnosis: Physical deconditioning Discharge Diagnosis: Dyspnea Discharge Disposition: 01-Home or Self Care Attending [...] Active Hypertension(Confirmed) Active Ingrowing nail(Confirmed) Active Ileus(Confirmed) 1/1/05 Active Irritable bowel syndrome Active (IBS)(Confirmed) Red measles(Confirmed) 1940 Active Mumps(Confirmed) 1953 Active Dermatophytosis of nail(Confirmed) Active Osteoarthritis(Confirmed) Active Osteopenia(Confirmed) 1997 Active Pain in limb(Confirmed) Active Peripheral vascular disease(Confirmed) Active Whooping cough(Confirmed) 193 Active [place] measles(Confirmed) 194 Active Smallpox(Confirmed) Active Trigger thumb [...] ligation Appendectomy 1953 Tonsillectomy 1947 1see conversion [id number] conversion [id number] carpal tunnel and ulnar nerve compression-see conversion document Social History Social History Type Response Smoking Status Never smoker Assessment and Plan Extracted from: Title: Office Visit Note Author: Rickie Perez MD Date: 06/10/15 Assessment/Plan 1.Asthma with COPD 2.Dyspnea 3.Physical deconditioning 4.Need for influenza vaccination Recommended a brief burst of prednisone. 20 mg daily for one week and 10 mg daily for one week. Patient also received the flu vaccine in office today. Follow-up evaluation pulmonary medicine clin icin approximately 6 months or sooner if need be.
--- OUTSIDE RECORDS SUMMARY | 2018-01-09 12:02 | External Medical Summary | Referral Summary ---
:1935 Author Organization [facility] Address [address] [place] [address] Care Team Providers Name Role Phone Rickie Nunez Primary Care Physician Encounter VC Date(s): 10/17/17 - 10/17/17 [facility] [address] [place] [id number] Encounter Diagnosis Atrial fibrillation (Discharge Diagnosis) - 10/17/17 Asthma with COPD (Discharge Diagnosis) - 10/17/17 Chronic CHF (Discharge Diagnosis) - 10/17/17 Physical deconditioning (Discharge Diagnosis) - 10/17/17 Nocturnal hypoxemia (Discharge Diagnosis) - 10/17/17 Dyspnea (Discharge Diagnosis) - 10/17/17 Cardiomyopathy (Discharge Diagnosis) - 10/17/17 Discharge Disposition: 01-Home or Self Care Attending Physician: Rickie Perez MD Admitting Physician: Rickie Perez MD Vital Signs Most recent to oldest [Reference Range]: 1 Peripheral Pulse Rate [60-100 bpm] 61 bpm (10/17/17 10:09 AM) Blood Pressure [90-140/60-90 mmHg] 130/60 mmHg (10/17/17 10:09 AM) SpO2 90 % (10/17/17 10:09 AM) Problem List Condition Effective Dates Status Health Status Informant Acute pain(Confirmed) Active Allergic rhinitis/Hay fever(Confirmed) Active Asthma(Confirmed) Active Asthma with COPD(Confirmed) Active At risk of pressure sore(Confirmed) Active Atrial fibrillation(Confirmed) Active Bleeding problems(Confirmed) Active Cardiomyopathy(Confirmed) Active Carpal tunnel syndrome(Confirmed) 1987 Active Chronic CHF(Confirmed) Active Urine infections(Confirmed) Active Thyroid disease/Goiter(Confirmed) Active Dyspnea(Confirmed) Active Enthesopathy of ankle and Active tarsus(Confirmed) [...] vascular disease(Confirmed) Active Whooping cough(Confirmed) 193 Active Physical deconditioning(Confirmed) Active French measles(Confirmed) 1946 Active Smallpox(Confirmed) Active Trigger thumb Lt(Confirmed) Active Problems with swallowing and Active hiccuping(Confirmed) Tissue perfusion Active alteration(Confirmed)2 Chicken pox(Confirmed) 1945 Active 1Problem added automatically by system based on initiation of Impaired Gas Exchange Plan of [id number] added automatically by system based on initiation [...] BID, 0 Refill(s) Start Date: 08/05/17 Status: Orderedaspirin 81 mg oral tablet mg tabs, Oral, Daily, 0 Refill(s) Start Date: 10/17/17 Status: OrderedCalcium 600+D See Instructions, 1 tab [...] 0 Refill(s) Start Date: 08/05/17 Status: Orderedfurosemide 80 mg oral tablet mg tabs, Oral, BID, 0 Refill(s) Start Date: 10/17/17 Status: OrderedHome Oxygen (DME) DME Item APRIA [...] g, 0 Refill(s) Start Date: 07/29/17 Status: OrderedMiscellaneous DME DME Item Overnight oximetry on room air PATRICIA:99 DX:R09.02/J44.9 RSK, See Instructions, # 1 Each, 0Refill(s), Supply Start Date: 09/05/17 Status: Orderedmultivitamin Daily, 0 Refill(s) Start Date: [...] Procedures Procedure Date Related Diagnosis Body Site Status Cardiac catheterization 01/22/08 Completed Cervical biopsy 09/27/06 Completed Biopsy of breast Lt 2002 Completed Hernia repair-wentral w/mesh 2002 Completed Hospital admission-asthma 2002 Completed Cardiac catheterization 02/13/00 Completed Hernia repair-ventral1 1999 Completed Colonoscopy 05/12/99 Completed Esophagogastroduodenoscopy 05/12/99 Completed Esophagogastroduodenoscopy 10/24/96 Completed Hernia repair2 1996 Completed Colonoscopy 08/07/96 Completed Colonoscopy 04/28/93 Completed Dilation and curettage 1992 Completed Carpal tunnel release3 1986 Completed Trigger thumb of left hand 1985 Completed Cholecystectomy 1983 Completed Hernia repair-umbilical, hiatal x3 1983 Completed Procedure-esophogoscopy 06/09/76 Completed Surgery-thyroid 1975 Completed Procedure-esophogoscopy 06/21/73 Completed Dilation and curettage 1971 Completed section 1969 Completed Procedure-bilateral greater and lesser 1960 Completed sophemous ligation Appendectomy 1953 Completed Tonsillectomy 1947 Completed 1see conversion ejdrpprx1ojj conversion [id number] carpal tunnel and ulnar nerve compression-see conversion document Social History Social History Type Response Smoking Status Never (less than 100 in lifetime) entered on: 07/29/17 Assessment and Plan Extracted from: Title: Office Visit Note Author: Rickie Perez MD Date: 10/17/17 1.Asthma with COPD 2.Atrial fibrillation 3.Cardiomyopathy 4.Chronic CHF 5.Dyspnea 6.Nocturnal hypoxemia 7.Physical deconditioning I recommended the patient continue current medications. We spoke at length aboutrechecking her overnight oximetryand if appropriaterestarting nocturnal oxygen. Hopefully this can be accompli shed in the nextseveral days. Follow-up visit is planned in the pulmonary medicine clinic in approximately 3 months or sooner if need be.
--- OUTSIDE RECORDS SUMMARY | 2018-01-09 12:02 | External Medical Summary | Referral Summary ---
:1935 [facility] [place] Address [address] [place] [address] Care Team Providers Name Role Phone Rickie Nunez Primary Care Physician Encounter [facility] [id number] Date(s): 10/17/17 - 10/17/17 [facility], [place] [address] [place] [address]- [phone] Discharge Disposition: 01-Home or Self Care Attending Physician: Rickie Perez MD Admitting Physician: Rickie Perez MD Referring Physician: Rickie Perez MD Problem List Condition Effective Dates Status Health [...] Whooping cough(Confirmed) 193 Active Physical deconditioning(Confirmed) Active Kyrgyz measles(Confirmed) 1946 Active Smallpox(Confirmed) Active Trigger thumb Lt(Confirmed) Active Problems with swallowing and Active hiccuping(Confirmed) Tissue perfusion Active alteration(Confirmed)2 Chicken pox(Confirmed) 1945 Active 1Problem added automatically by system based on initiation of Impaired Gas Exchange Plan of [id number] added automatically by system based on initiation [...] Completed Dilation and curettage 1971 Completed section 1968 Completed Procedure-bilateral greater and lesser 1960 Completed sophemous ligation Appendectomy 1953 Completed Tonsillectomy 1947 Completed 1see conversion [id number] conversion [id number] carpal tunnel and ulnar nerve compression-see conversion document Social History Social History Type Response Smoking Status Never (less than 100 in lifetime) entered on: 07/29/17
--- OUTSIDE RECORDS SUMMARY | 2018-01-09 12:02 | External Medical Summary | Referral Summary ---
:1935 Author Organization [facility] Address [address] [place] [address] Care Team Providers Name Role Phone Rickie Nunez Primary Care Physician Encounter [facility] Date(s): 12/23/16 - 12/23/16 [facility] [address] [place] [address]- [place] Discharge Diagnosis: Physical deconditioning Discharge Diagnosis: Nocturnal hypoxemia Discharge Diagnosis: Allergic rhinitis Discharge Diagnosis: Asthma with COPD Discharge Diagnosis: Obesity Discharge Disposition: 01-Home or Self Care Attending Physician: Rickie Perez MD Admitting Physician: Rickie Perez MD Vital Signs Most recent to oldest [Reference Range]: 1 Peripheral Pulse Rate [60-100 bpm] 68 bpm (12/23/16 9:15 AM) Respiratory Rate [14-20 br/min] 20 br/min (12/23/16 9:15 AM) Blood Pressure [90-140/60-90 mmHg] 136/70 mmHg (12/23/16 9:15 AM) SpO2 96 % (12/23/16 9:15 AM) Problem List Condition Effective Dates Status [...] vascular disease(Confirmed) Active Whooping cough(Confirmed) 193 Active Maori measles(Confirmed) 194 Active Smallpox(Confirmed) Active Trigger thumb [...] Supply Start Date: 06/10/15 Status: Orderedlansoprazole 30 mg, Oral, Daily, 0 Refill(s) Start Date: 12/23/16 Status: OrderedLibrax 5 mg-2.5 mg oral capsule [...] Status: OrderedVentolin HFA 90 mcg/inh inhalation aerosol 180 mcg 2 puffs, Inhalation, QID, # 1 Each, 3 Refill(s), Pharmacy: [id number], 2 puffs Inhalation QID Start Date: 12/23/16 Status: Ordered Results No data available for this section Immunizations Given and Recorded Vaccine Date Status Refusal Reason influenza virus vaccine, inactivated 05/21/16 Given pneumococcal 13-valent conjugate vaccine 06/10/15 Given pneumococcal 23-polyvalent vaccine 07/20/11 Recorded tetanus-diphth toxoids (Td) adult/adol 02/18/06 Recorded zoster vaccine live 01/19/08 Recorded Procedures Procedure Date Related Diagnosis Body [...] ligation Appendectomy 1953 Tonsillectomy 1947 1see conversion vicatror8ohu conversion [id number] carpal tunnel and ulnar nerve compression-see conversion document Social History Social History Type Response Smoking Status Never smoker Assessment and Plan Extracted from: Title: Office Visit Note Author: Rickie Perez MD Date: 12/23/16 Assessment/Plan 1.Asthma with COPD 2.Allergic rhinitis 3.Obesity 4.Physical deconditioning 5.Nocturnal hypoxemia I've recommended the patient continue current medications aswell is the use of supplemental oxygen. I encouraged her tothe actinic try to walk at least for short period of time on a daily basis. Follow-up visit is planned medicine clinic in 6 months or sooner if need be. Extracted from: Title: oximetry study Author: Linda Ojeda RN Date: 12/23/16 SpO2 96% resting on RA, P:71. SpO2 91% ambulating 150 ft on RA, P:123. SpO2 92% recovery 2 min on RA, P:94.
[2018-01-09] MEDS ORDERED: SULFAMETHOXAZOLE/TMP 800 MG/160 MG DS TABLET PO ONE (12:06)
[2018-01-09] MEDS ORDERED: HYDROCODONE/APAP 5mg/325mg TABLET PO ONE (12:06)
--- NOTE | 2018-01-09 12:19 | Emergency Department Report ---
Extremity Problem HPI - General Chief complaint: Extremity Problem,Nontraumatic Stated complaint: Left foot poss infected toenail Source: patient, family Mode of arrival: wheelchair Limitations: no limitations - History of Present Illness HPI Narrative: Pt presents with left great toe and foot pain. Pt states it started a couple of days ago. She has been soaking it in Epsom salt and taking Tylenol for the pain with minimal relief. PT has had infected toes nails before and became more concerned when he felt like it looked as thoug it were going to come of. Denies fever. Recent CHF admission. Pt is very anxious and seems to have some underlying dementia. MD Complaint: extremity pain Onset (ago): day(s) Consistency: constant Location: left, toe - Related Data Home Medications Medication Instructions Recorded Confirmed Acetaminophen [Tylenol] 500 mg PO DAILY 01/09/18 01/09/18 Albuterol HFA Inhaler [Ventolin 2 puff ORAL INH Q4HR PRN 01/09/18 01/09/18 Hfa 90 mcg/actuation] Albuterol/Ipratropium [Duoneb] 1 unit AEROSOL QID 01/09/18 01/09/18 Aspirin Chewable [ASA] 81 mg PO DAILY 01/09/18 01/09/18 Budesonide Inhalation [Pulmicort 0.5 mg INH DAILY PRN 01/09/18 01/09/18 Inhalation] Calcium Citrate/Vitamin D3 1 each PO HS 01/09/18 01/09/18 [Calcium Citrate - Vit D Caplet] Docusate Calcium [Stool Softener] 240 mg PO BID 01/09/18 01/09/18 Enalapril [Vasotec] 10 mg PO DAILY 01/09/18 01/09/18 Furosemide [Lasix 80 mg Tab] 80 mg PO DAILY 01/09/18 01/09/18 Levothyroxine Tab [Synthroid] 100 mcg PO ACB 01/09/18 01/09/18 Metolazone [Zaroxolyn] 2.5 mg PO DAILY 01/09/18 01/09/18 Milk of Magnesia [Mom] 30 ml PO DAILY 01/09/18 01/09/18 Multi-Vitamin Plain [Theragran] 1 tab PO DAILY 01/09/18 01/09/18 Propylene Glycol/Peg 400 [Systane 1 drop EACH EYE DAILY 01/09/18 01/09/18 0.3-0.4% Eye Drops] Allergies Allergy/AdvReac Type Severity Reaction Status Date / Time cefdinir Allergy Unknown Verified 01/09/18 11:35 dexamethasone Allergy Unknown Verified 01/09/18 11:35 dextran Allergy Unknown Verified 01/09/18 11:35 dobutamine Allergy Unknown Verified 01/09/18 11:35 doxycycline Allergy Unknown Verified 01/09/18 11:35 latex Allergy Unknown Verified 01/09/18 11:35 levofloxacin Allergy Unknown Verified 01/09/18 11:35 NSAIDS (Non-Steroidal Allergy Unknown Verified 01/09/18 11:35 Anti-Inflamma omeprazole Allergy Unknown Verified 01/09/18 11:35 valdecoxib Allergy Unknown Verified 01/09/18 11:35 dexamethasone sod phosphate Allergy Unknown Uncoded 03/18/16 09:12 ENOVID Allergy Unknown Uncoded 08/18/14 14:39 omeprazole magnesium Allergy Unknown Uncoded 03/18/16 09:12 THALLIUM Allergy Unknown Uncoded 08/18/14 14:39 Review of Systems All systems: reviewed and negative except as stated Constitutional: Reports: as per HPI Cardiovascular: Reports: as per HPI Musculoskeletal: Reports: as per HPI Integumentary: Reports: as per HPI Psychiatric: Reports: as per HPI [facility] Medical History (Last Updated 12/12/17 @ 13:40 by LAURENT Packer) Asthma (Acute Medical) GERD (gastroesophageal reflux disease) (Acute Medical) Hypothyroidism (Acute Medical) Osteopenia (Acute Medical) Spondylolisthesis (Acute Medical) Family History: Family History (Last Updated 12/12/17 @ 13:48 by LAURENT Packer) Brother Ichthyosis Sister Multiple sclerosis Son Environmental allergies Daughter High blood pressure Mother Stroke Father Parkinson disease - Social History Smoking status: Never smoker Alcohol intake frequency: does not drink Physical Exam - Limitations Limitations: other (PT is extremely anxious and moans and shakes before any kind type of physical exam) - General General appearance: alert, anxious - Normal Exams: Head:: Normocephalic without trauma Cardiovascular:: Regular rate and rhythm, without murmur or gallop Abdomen:: Bowel sounds positive, soft, non-tender, non-distended Neurological:: Patient is alert, and oriented Psychiatric:: Patient exhibits (anxious) - Expanded Lower Extremity Exam left Foot/toe exam: Present: tenderness, swelling (1+ pittiing edema, left foot red, cool to touch, pedal portion is purple in color) Neurovascular/Tendon exam: Absent: normal capillary refill right Foot/toe exam: Present: full ROM, swelling (1+ edema), erythema Course Vital Signs Temperature 97.8 F 01/09/18 10:08 Pulse Rate 89 01/09/18 10:08 Respiratory Rate 18 01/09/18 10:08 Blood Pressure 116/57 01/09/18 10:08 Pulse Oximetry 93 01/09/18 10:08 Temperature 97.8 F 01/09/18 10:08 Pulse Rate 89 01/09/18 10:08 Respiratory Rate 18 01/09/18 10:08 Blood Pressure 116/57 01/09/18 10:08 Pulse Oximetry 93 01/09/18 10:08 Extremity Problem, Nontraumati - MDM Narrative Medical decision making narrative: US results reviewed. Lab results of elevated BUN and creatine discussed with Dr Loera. BUN and CR elevated from last lab draws. Pt is on multiple nephrotoxic medications and will be admitted to make adjustments and rehydrate. Findings and plan discussed with family who voice understanding - Differential Diagnosis Likely: cellulitis, superficial thrombophlebitis, lower extremity edema, deep vein thrombosis of lower extremity - Lab Data Attestation: I reviewed the patient's lab results. Result diagrams: 01/09/18 12:20 01/09/18 12:20 - Radiology Data Attestation: I reviewed the patient's radiology results. (sono read per V rad) Disposition Clinical Impression: Acute renal insufficiency, Toe pain, left, Dehydration Disposition: 02 [place] [facility] [place]: Stable Prescriptions: No Action Levothyroxine Tab [Synthroid] 100 mcg PO ACB Acetaminophen [Tylenol] 500 mg PO DAILY Propylene Glycol/Peg 400 [Systane 0.3-0.4% Eye Drops] 1 drop EACH EYE DAILY Milk of Magnesia [Mom] 30 ml PO DAILY Calcium Citrate/Vitamin D3 [Calcium Citrate - Vit D Caplet] 1 each PO HS Albuterol HFA Inhaler [Ventolin Hfa 90 mcg/actuation] 2 puff ORAL INH Q4HR PRN PRN Reason: Shortness Of Air/Wheezing Budesonide Inhalation [Pulmicort Inhalation] 0.5 mg INH DAILY PRN PRN Reason: Shortness Of Air Metolazone [Zaroxolyn] 2.5 mg PO DAILY Furosemide [Lasix 80 mg Tab] 80 mg PO DAILY Enalapril [Vasotec] 10 mg PO DAILY Aspirin Chewable [ASA] 81 mg PO DAILY Multi-Vitamin Plain [Theragran] 1 tab PO DAILY Albuterol/Ipratropium [Duoneb] 1 unit AEROSOL QID Docusate Calcium [Stool Softener] 240 mg PO BID Referrals: Stacie Bailey APRN [Advanced Practice Nurse] - Rickie Nunez MD [Primary Care Provider] - Time of Disposition: 14:42 - Seen By: kelly
[2018-01-09] MEDS ORDERED: SALINE FLUSH 10ml SYRINGE IVF PRN (12:26)
[2018-01-09] MEDS ORDERED: METOCLOPRAMIDE 10mg/2ml INJECTION IVP ONE (12:26)
[2018-01-09] MEDS ORDERED: MORPHINE SULFATE 2mg INJECTION IVP ONE (12:26)
--- NOTE | 2018-01-09 15:15 | History & Physical Report ---
History of Present Illness Date: 01/09/18 Chief complaint: Left great toe infection HPI: Arcelia Simmons is an 82 year old woman who lives at home with her . She has a history of Alzheimer's and since being hospitalized at [facility] in July, for A-fib, her memory took a drastic decline. Most of the history was obtained from her . She's had problems with her left great toe for several months, and a few days ago it started draining pus. They've been soaking it in Epsom salt, but it began to turn red and the pain increased. This was the original reason that she was taken to the ED on 01/09/18. However, her recently cut back on her diuretics -- she had been Rx Lasix 80 mg BID + Metolazone 2.5 mg daily in August, by Dr. Pizarro. Her didn't think she needed quite that much so he cut her dose of Lasix down to 60 mg BID. Arcelia reports that she's had increased SOA as well. She was placed on oxygen in the ED b/c of room air sat of 85%. At home, she only uses nocturnal oxygen at 2.5L. She reports chest pain but adds that she frequently has it b/c of acid reflux. She complains of chronic abdominal pain and on palpation she moaned loudly - both her and her son state that is a typical response. She has had problems with bright red rectal bleeding and they think she might have hemorrhoids - however this was some time ago. She also has a tendency towards constipation. She complains of being chilled but denies fevers or sweating. She denies palpitations, dizziness, or weakness. She has paresthesias in her toes. She uses a walker to ambulate and denies any recent falls - her last one was several weeks ago. She denies any cough or URI symptoms. She urinates frequently and is incontinent. Over the last few months, her leg swelling has improved significantly. The ED practitioner checked labs and found MINGO with BUN of 116 and creatinine of 2.0. In July, creatinine was 0.74, in August 2017 it was 0.82, and in November, it was 1.45. She also had hypercalcemia with a calcium level of 11.5. Review of Systems ROS unobtainable: due to mental status All systems PM: 10-point ROS was reviewed, no additional remarkable complaints except - Constitutional Constitutional: Present: as per HPI - EENMT Eyes: Present: requires corrective lenses (wears thick bifocals) Nose: Present: as per HPI Mouth/Throat: Present: changes in swallowing (dysphagia since hospitalization in July,) - Cardiovascular Cardiovascular: Present: as per HPI Vascular: Present: see HPI - Respiratory Respiratory: Present: as per HPI - Gastrointestinal Gastrointestinal: Present: as per HPI - Genitourinary Genitourinary: Present: as per HPI - Musculoskeletal Musculoskeletal: Present: as per HPI - Integumentary/Breasts Integumentary: Present: as per HPI - Neurological Neurological: Present: as per HPI - Psychiatric Psychiatric: Present: as per HPI, anxiety - Endocrine Endocrine: Present: as per HPI - Hematologic/Lymphatic Hematologic/Lymphatic: Present: easy bruising Past Medical History Medical History: Medical History (Last Updated 01/09/18 @ 16:04 by Vianey Dhaliwal APRN) Alzheimer disease Atrial fibrillation CHF (congestive heart failure) COPD (chronic obstructive pulmonary disease) Hearing loss Incontinence Osteoarthritis Asthma GERD (gastroesophageal reflux disease) Hypothyroidism Osteopenia Spondylolisthesis Medical History Updates: PVD. Pulmonary fibrosis. Goiter. Allergic rhinitis. Dermatophytosis of nail. Echo July 2017: ejection fraction about 35% with moderate mitral, tricuspid regurgitation with moderate pulmonary hypertension, mild aortic stenosis Surgical History: D&C with endometrial sampling (01/07/2012), Cardiac catheterization (01/22/2008), Endometrial biopsy (09/27/2006), Laparotomy with segmental small bowel resection (08/2004), Biopsy of breast (2002), Ventral hernia repair with mesh (2002), Cardiac catheterization (02/13/2000), Ventral hernia repair with mesh (1999), Colonoscopy (05/12/1999), Esophagogastroduodenoscopy (05/12/1999), Esophagogastroduodenoscopy (10/24/1996) , Hiatal hernia repair (1996), Colonoscopy (08/07/1996), Colonoscopy (04/28/1993 ), Dilation and curettage (1992), Carpal tunnel release (1986), Trigger thumb of left hand (1985), Cholecystectomy (1983), Hernia repair (1983), Procedure (), Left hemithyroidectomy (1975), Dilation and curettage (1971), Hiatal hernia repair x2 (), section (1968), Bilateral greater and lesser saphenous ligation (1960), Appendectomy (1953), Tonsillectomy (1947). Family History: Family History (Last Updated 12/12/17 @ 13:48 by Lashae Barnes [facility]) Brother Ichthyosis Sister Multiple sclerosis Son Environmental allergies Daughter High blood pressure Mother Stroke Father Parkinson disease Family History Updates: Father had Parkinson disease. from pneumonia at age 85. Mother of a massive stroke at age 79. Brother at 72, he had ulcerative colitis, HTN, and DM. Another brother at 63. Sister at age 75; she had multiple sclerosis. Family History: As Above - Social History Smoking status: Never smoker Substance use type: does not use Alcohol intake frequency: does not drink Household members: spouse Current occupational status: retired Social history: PCP: Dr. Rickie Nunez CV: Dr. Echo Sexton: Dr. Perez Medications Home Medications Medication Instructions Recorded Confirmed Type Acetaminophen [Tylenol] 500 mg PO DAILY 01/09/18 01/09/18 History Albuterol HFA Inhaler [Ventolin 2 puff ORAL INH Q4HR PRN 01/09/18 01/09/18 History Hfa 90 mcg/actuation] Albuterol/Ipratropium [Duoneb] 1 unit AEROSOL QID 01/09/18 01/09/18 History Aspirin Chewable [ASA] 81 mg PO DAILY 01/09/18 01/09/18 History Budesonide Inhalation [Pulmicort 0.5 mg INH DAILY PRN 01/09/18 01/09/18 History Inhalation] Calcium Citrate/Vitamin D3 1 each PO HS 01/09/18 01/09/18 History [Calcium Citrate - Vit D Caplet] Docusate Calcium [Stool Softener] 240 mg PO BID 01/09/18 01/09/18 History Enalapril [Vasotec] 10 mg PO DAILY 01/09/18 01/09/18 History Furosemide [Lasix 80 mg Tab] 80 mg PO DAILY 01/09/18 01/09/18 History Levothyroxine Tab [Synthroid] 100 mcg PO ACB 01/09/18 01/09/18 History Metolazone [Zaroxolyn] 2.5 mg PO DAILY 01/09/18 01/09/18 History Milk of Magnesia [Mom] 30 ml PO DAILY 01/09/18 01/09/18 History Multi-Vitamin Plain [Theragran] 1 tab PO DAILY 01/09/18 01/09/18 History Propylene Glycol/Peg 400 [Systane 1 drop EACH EYE DAILY 01/09/18 01/09/18 History 0.3-0.4% Eye Drops] Allergies Allergy/AdvReac Type Severity Reaction Status Date / Time cefdinir Allergy Unknown Verified 01/09/18 11:35 dexamethasone Allergy Unknown Verified 01/09/18 11:35 dextran Allergy Unknown Verified 01/09/18 11:35 dobutamine Allergy Unknown Verified 01/09/18 11:35 doxycycline Allergy Unknown Verified 01/09/18 11:35 latex Allergy Unknown Verified 01/09/18 11:35 levofloxacin Allergy Unknown Verified 01/09/18 11:35 NSAIDS (Non-Steroidal Allergy Unknown Verified 01/09/18 11:35 Anti-Inflamma omeprazole Allergy Unknown Verified 01/09/18 11:35 valdecoxib Allergy Unknown Verified 01/09/18 11:35 dexamethasone sod phosphate Allergy Unknown Uncoded 03/18/16 09:12 ENOVID Allergy Unknown Uncoded 08/18/14 14:39 omeprazole magnesium Allergy Unknown Uncoded 03/18/16 09:12 THALLIUM Allergy Unknown Uncoded 08/18/14 14:39 Exam Vital Signs: Temperature 97.8 F 01/09/18 10:08 Pulse Rate 70 01/09/18 14:25 Respiratory Rate 19 01/09/18 14:25 Blood Pressure 156/67 H 01/09/18 14:43 Pulse Oximetry 98 01/09/18 14:25 - Constitutional Present: no acute distress, well nourished, well developed, obese - Routine HEENT Exam Head: Present: normocephalic Eye: Present: PERRL. Absent: conjunctival icterus, scleral injection ENT: Present: mucous membranes moist, oropharynx clear (mild pharyngeal erythema ) - Routine Neck Exam Present: supple. Absent: JVD, lymphadenopathy - Routine Respiratory Exam Present: decreased breath sounds - Routine Cardiovascular Exam Present: murmur, irregular rhythm - Routine Abdominal Exam Present: normoactive bowel sounds, tenderness (pt moaned loudly on palpation of abdomen; on re-attempt with digital color press operator palpation she did the same) - Routine Extremities Exam Present: edema (3+ b/l), pulses intact - Routine Skin Exam Present: intact, dry, warm Comments: Chronic venous stasis to BLE Right great toenail is thickened with an open area vs. fungal irritation under the toenail. There was a clear ointment covering her toenail. No drainage was noted. Her toe is mildly erythemic, swollen, and very tender to touch. - Routine Neurological Exam Present: alert, CN II-XII intact, moving all extremities, vision grossly intact (requires thick corrective lenses), hearing grossly intact (very WIYOT) - Routine Psychiatric Exam Present: cooperative. Absent: normal affect (anxious, tearful at times) Results - Labs CBC & Chem 7: 01/09/18 12:20 01/09/18 12:20 Assessment and Plan Assessment and Plan: Assessment MINGO (baseline creatinine approx 0.8) Systolic CHF (Echo July 2017: ejection fraction about 35% with moderate mitral, tricuspid regurgitation with moderate pulmonary hypertension, mild aortic stenosis) Left great toenail infection with history of Dermatophytosis Hypoxia of 85% on room air Atrial fibrillation - started on Coumadin in July, but discontinued in August, due to markedly elevated INR of 19.7 PVD Pulmonary fibrosis Asthma with COPD Nocturnal oxygen dependency 2.5L Alzheimer's dementia Hypothyroidism/goiter GERD Allergic rhinitis Dysphagia Obesity with BMI 34.6 Plan Admit, observation status under the hospitalist service. Dr. Loera attending. MINGO - start IVF, NS at 100 mL/hr. Hold Lasix, metolazone, and enalapril. Check postvoid residuals. May need further w/u. Toe infection - start Augmentin BID. (reported allergy to cefdinir is "nausea") . Tylenol PRN. CHF/A-fib/dyspnea & hypoxia/poorly defined chest pain - trop x3, proBNP, CXR, EKG, tele, daily weights COPD/pulm fibrosis - continue breathing treatments. Dysphagia - modified cardiac diet, consult speech therapy. GERD - start Zantac BID. (allergy to PPI is "stomach cramps") Code status - DNR. Clinic records and [facility] records were reviewed. DVT Prophylaxis: Lovenox GI Prophylaxis: Rantidine Resuscitation Status: Do Not Resuscitate - Physician Narrative Physician: Che Loera MD Narrative: Date: 01/09/18 Time: 1819 I have independently evaluated and examined this patient. I reviewed the chart, the patient's history, and the ADVANCED DEVELOPER/PA's documented findings as above. We discussed and formulated the assessment and plan as above with additions as below: Mrs. Simmons was seen with her and son at bedside. She indicated concern about her toes and denied chest pain or dyspnea. Her reports that to see Dr. Dodge next week for reassessment. Review of Dr. Nunez's records indicate she was at least briefly on Xarelto after warfarin was discontinued and the patient's reports she was started on Eliquis by Dr. Dodge in October and that they took samples for 2 weeks and then stopped the anticoagulant (he indicates that they continued using enalapril when the samples were out). Patient has not had any follow-up with primary care since leaving intermediate at [facility] in August. On examination the patient is vague historically, cardiac rhythm is irregular Respirations are nonlabored with relatively clear breath sounds other than scattered wheezing There is +3 edema right lower extremity, +2 left lower extremity with mild erythema/stasis changes distal shins. The left great toenail is loose with granulation tissue evident under the nail, no purulent drainage visible at time of exam Hemoglobin 14.1 but likely hemoconcentrated, potassium 4.1, carbon dioxide 32- likely represents contraction alkalosis. BUN 116-significantly higher than 4 months ago and creatinine has nearly tripled since late July. ProBNP 1120 Chest x-ray by my review with cardiomegaly and minor prominence of the vascular markings. Venous Doppler left lower extremity negative for DVT. Acute kidney injury in conjunction with systolic heart failure/cardiomyopathy- history compatible with prerenal azotemia due to diuresis/dehydration but exam suggest patient is still volume overloaded with significant lower extremity edema. Hold diuretics, hydrate gently, monitor oxygenation closely. Both EKG and telemetry consistent with atrial fibrillation-will discuss with Dr. Dodge tomorrow morning when he is available. Given combined evidence of heart failure and acute renal failure patient will need to be monitored closely and hospitalization anticipated be more than 48 hours to minimize risk of decompensating heart failure while treating renal failure. Converted to inpatient status. Outpatient records reviewed, discussed with ER provider. Hospital Course Summary Disclaimer: The visit summary below is not to be considered part of the above Progress Note. Hospital Course: 01/09/18 Admit, observation status under the hospitalist service. Dr. Loera attending. MINGO - start IVF, NS at 100 mL/hr. Hold Lasix, metolazone, and enalapril. Check postvoid residuals. May need further w/u. Toe infection - start Augmentin BID. (reported allergy to cefdinir is "nausea") . Tylenol PRN. CHF/A-fib/dyspnea & hypoxia/poorly defined chest pain - trop x3, proBNP, CXR, EKG, tele, daily weights COPD/pulm fibrosis - continue breathing treatments. Dysphagia - modified cardiac diet, consult speech therapy. GERD - start Zantac BID. (allergy to PPI is "stomach cramps") Code status - DNR.
[2018-01-09 15:51] VITALS: BMI 34.6
[2018-01-09] MEDS: NS 1,000 ML IV SCH (16:13)
[2018-01-09] MEDS: ENOXAPARIN 30 MG/0.3 ML INJECTION SQ SCH (17:21)
[2018-01-09] MEDS: RANITIDINE 150 MG TABLET PO SCH (20:09)
[2018-01-09] MEDS: DOCUSATE CALCIUM 240 MG CAPSULE PO SCH (20:09)
[2018-01-09] MEDS: AMOX/CLAV 875 MG/125 MG TABLET PO SCH (20:09)
[2018-01-09] MEDS: ALBUTEROL/IPRATROPIUM 2.5mg-0.5mg/3ml NEB AEROSOL SCH (21:45)
[2018-01-10] MEDS: NS 1,000 ML IV SCH ×2 (02:03→12:58)
[2018-01-10] MEDS: LEVOTHYROXINE 100 MCG TABLET PO SCH (05:52)
[2018-01-10] MEDS: ALBUTEROL/IPRATROPIUM 2.5mg-0.5mg/3ml NEB AEROSOL SCH ×5 (07:00→19:10)
[2018-01-10] MEDS: BUDESONIDE INH.SOLN 0.5mg/2ml NEB AEROSOL SCH (07:00)
--- NOTE | 2018-01-10 08:16 | Ultrasound Report ---
Indication: purple, painful left foot PROCEDURE: US venous doppler LE LT: Encounter: Initial Comparison: None Technique: Color Doppler duplex and grayscale sonographic imaging of the left lower extremity was performed. Findings: There is no evidence for acute deep venous thrombosis in the left thigh. Specifically, serial graded compression was performed from the inguinal ligament to the popliteal bifurcation, on the left thigh, demonstrating appropriate compressibility of the deep venous system. In addition, color and pulsed Doppler demonstrate appropriate spontaneous flow, variation with respiration, and augmentation with calf compression. At the ankle, normal flow is identified in the posterior tibial veins; these vessels are also normal in caliber. Impression: No evidence of acute DVT in the left lower limb. There is a preliminary report by virtual radiologic. .
--- NOTE | 2018-01-10 08:30 | XRay Report ---
Indication: SOA PROCEDURE: XR chest 1V: Encounter: Initial Comparison: December 03, 2015 FINDINGS: There is a new ill-defined density in the medial right apex and a oval 1.6 cm nodule in the left midlung. No pneumonia, pleural effusion or pneumothorax. Heart size and mediastinal contours are stable. Pulmonary vascularity is normal. Impression: Apparently new pulmonary nodules. Recommend noncontrast chest CT for further evaluation. .
[2018-01-10] MEDS: ACETAMINOPHEN 500 MG TABLET PO SCH (09:53)
[2018-01-10] MEDS: ASPIRIN 81 MG CHEWABLE TABLET PO SCH (09:53)
[2018-01-10] MEDS: AMOX/CLAV 875 MG/125 MG TABLET PO SCH ×2 (09:53→20:37)
[2018-01-10] MEDS: RANITIDINE 150 MG TABLET PO SCH ×2 (09:54→20:37)
[2018-01-10] MEDS: DOCUSATE CALCIUM 240 MG CAPSULE PO SCH ×2 (09:54→20:37)
[2018-01-10] MEDS: SYSTANE EYE DROPS 0.7ml EACH EYE SCH (09:54)
[2018-01-10] MEDS: ENOXAPARIN 30 MG/0.3 ML INJECTION SQ SCH (09:54)
--- NOTE | 2018-01-10 10:18 | Wound Care Progress Note ---
Wound Center Progress Note: Pt seen for wound consultation r/t L toe wound. Seen with Lynne CRUZ. Pt resting in chair, at bedside. L toe pain is "touch and go" according to pt. Pt has had problems with her L great toe/nail for a few months. In the last few days there has been an increase in pain and pus like drainage. At home the had been soaking the toe in Epsom Salts. Pt is receiving Augmentin TID for possible infection at L great toe site. L great toe: toe nail is loose at lateral edge, dried crust/drainage under nail, no active drainage, nail is bowed out. Periwound: blanchable erythema, toe is slightly swollen, pain with nail manipulation. Wound care: Apply A&D ointment under nail to soften crust, cover with nonadhesive pad, wrap with gauze, change daily and PRN.
--- NOTE | 2018-01-10 11:39 | Progress Note ---
- Date 01/10/18 Subjective: Arcelia reports that her toe is feeling pretty good today. It doesn't bother her much. She also states that her abdomen isn't bothering her today (nor was she tender on palpation). She denied feeling SOA or having any chest pain. She denied nausea. Her affect was brighter today and she was less anxious. Objective Vital signs: Temperature 96.3 F L 01/10/18 07:27 Pulse Rate 70 01/10/18 07:27 Respiratory Rate 20 01/10/18 11:10 Blood Pressure 138/79 01/10/18 07:27 Pulse Oximetry 95 01/10/18 11:10 Rhythm: Atrial Fibrillation with Normal Ventricular Rate Height/Weight/BMI: Weight 78.1 kg - Constitutional Present: no acute distress, well nourished, well developed, obese - Routine HEENT Exam Head: Present: normocephalic Eye: Present: PERRL. Absent: conjunctival icterus, scleral injection ENT: Present: oropharynx clear - Routine Respiratory Exam Comments: Initially had scattered wheezing but lung sounds cleared after coughing. - Routine Cardiovascular Exam Present: murmur, irregularly irregular - Routine Abdominal Exam Present: soft, normoactive bowel sounds, non distended, non tender - Routine Extremities Exam Present: edema (3+, R>L) - Routine Musculoskeletal Exam Musculoskeletal: Present: moving extremities well - Routine Skin Exam Present: intact, dry, warm, wounds (left great toenail is unchanged compared to yesterday but toe is not as erthematous and tender) Comments: erythema (mild)/venous stasis changes to both lower shins - Routine Neurological Exam Present: alert, CN II-XII intact, moving all extremities, normal speech. Absent : facial asymmetry - Routine Psychiatric Exam Present: normal affect, normal thought process, cooperative Results - Labs CBC & Chem 7: 01/09/18 12:20 01/10/18 05:45 Assessment and Plan Assessment and Plan: Assessment MINGO (baseline creatinine approx 0.8) Systolic CHF (Echo July 2017: ejection fraction about 35% with moderate mitral, tricuspid regurgitation with moderate pulmonary hypertension, mild aortic stenosis) Left great toenail infection with history of Dermatophytosis Hypoxia of 85% on room air Atrial fibrillation - started on Coumadin in July, but discontinued in August, due to markedly elevated INR of 19.7; briefly on Xarelto followed by [place] but no anticoagulation since approximately the beginning of November. PVD Pulmonary fibrosis Asthma with COPD Nocturnal oxygen dependency 2.5L Alzheimer's dementia Hypothyroidism/goiter GERD Allergic rhinitis Dysphagia Obesity with BMI 34.6 Plan FENa = 7.1%, consistent with post-renal/obstructive cause of renal failure. Post void residuals have been <200 mL. Order renal sono to look for hydro. BUN/creatinine improving with holding diuretics and IVF. Creatinine down to 1.6. Reduce rate of IVF to 75 mL/hr. May need to resume partial diuretic dosing soon given CHF hx. Resp status stable. Wound care evaluated left great toe and recommends to "apply A&D ointment under nail to soften crust, cover with nonadhesive pad, wrap with gauze, change daily and PRN". Toe is less tender/erythematous compared to yesterday. Denied chest pain today - trop neg x3. Dr. Loera planning on discussing A- fib treatment/anticoagulation with Dr. Dodge. CXR reported new pulmonary nodules & recommend noncontrast chest CT for further evaluation. Of note, CXR reports from [facility] in Jul, 2017 do not mention pulmonary nodules. Discussed with nursing - no immediate concerns. DVT Prophylaxis: Lovenox GI Prophylaxis: Rantidine Resuscitation Status: Do Not Resuscitate - Physician Narrative Physician: Che Loera MD Narrative: Date: 01/10/18 Time: 2119 I have independently evaluated and examined this patient. I reviewed the chart, the patient's history, and the LONGWALL MACHINE OPERATOR HELPER/PA's documented findings as above. We discussed and formulated the assessment and plan as above with additions as below: Mrs. Simmons was seen with her and son at the bedside. She expressed no concerns and reported that her foot feels better today. Her indicated that he thinks her legs in general looks better and that swelling is improved. She denies chest pain or dyspnea. NAD, appears more comfortable than she did yesterday Respirations nonlabored, good airflow, breath sounds clear Irregular cardiac rhythm, soft systolic murmur best heard along the left sternal border +1 edema bilateral lower extremities with faint erythema distally, left great toe wrapped BUN/creatinine improving but remains significantly elevated from baseline Urine sodium/creatinine noted Renal sonogram reviewed by myself-no evidence of hydronephrosis and kidneys measure approximate 9.8 and 9.7 cm per provided measurements. Continue gentle hydration prior to reinitiation of diuretics at much lower dose. I attempted to contact Dr. Dodge today to discuss status and to clarify intent with anticoagulation (Eliquis started but not continued earlier this year ) but he was out of the office and will not be available until tomorrow. Telemetry strips reviewed and continued to show wide complex slightly irregular rhythm compatible with atrial fibrillation. Rate well controlled. Hospital Course Summary Disclaimer: The visit summary below is not to be considered part of the above Progress Note. Hospital Course: 01/09/18 Admit, observation status under the hospitalist service. Dr. Loera attending. MINGO - start IVF, NS at 100 mL/hr. Hold Lasix, metolazone, and enalapril. Check postvoid residuals. May need further w/u. Toe infection - start Augmentin BID. (reported allergy to cefdinir is "nausea") . Tylenol PRN. CHF/A-fib/dyspnea & hypoxia/poorly defined chest pain - trop x3, proBNP, CXR, EKG, tele, daily weights COPD/pulm fibrosis - continue breathing treatments. Dysphagia - modified cardiac diet, consult speech therapy. GERD - start Zantac BID. (allergy to PPI is "stomach cramps") Code status - DNR. Hemoglobin 14.1 but likely hemoconcentrated, potassium 4.1, carbon dioxide 32- likely represents contraction alkalosis. BUN 116-significantly higher than 4 months ago and creatinine has nearly tripled since late July. ProBNP 1120 Chest x-ray by my review with cardiomegaly and minor prominence of the vascular markings. Venous Doppler left lower extremity negative for DVT. Acute kidney injury in conjunction with systolic heart failure/cardiomyopathy- history compatible with prerenal azotemia due to diuresis/dehydration but exam suggest patient is still volume overloaded with significant lower extremity edema. Hold diuretics, hydrate gently, monitor oxygenation closely. Both EKG and telemetry consistent with atrial fibrillation-will discuss with Dr. Dodge tomorrow morning when he is available. Given combined evidence of heart failure and acute renal failure patient will need to be monitored closely and hospitalization anticipated be more than 48 hours to minimize risk of decompensating heart failure while treating renal failure. Converted to inpatient status. 5/29/18 FENa = 7.1%, consistent with post-renal/obstructive cause of renal failure. Post void residuals have been <200 mL. Order renal sono to look for hydro. BUN/creatinine improving with holding diuretics and IVF. Creatinine down to 1.6. Reduce rate of IVF to 75 mL/hr. May need to resume partial diuretic dosing soon given CHF hx. Resp status stable. Wound care evaluated left great toe and recommends to "apply A&D ointment under nail to soften crust, cover with nonadhesive pad, wrap with gauze, change daily and PRN". Toe is less tender/erythematous compared to yesterday. Denied chest pain today - trop neg x3. Dr. Loera planning on discussing A- fib treatment/anticoagulation with Dr. Dodge. CXR reported new pulmonary nodules & recommend noncontrast chest CT for further evaluation. Of note, CXR reports from [facility] in Jul, 2017 do not mention pulmonary nodules. Discussed with nursing - no immediate concerns.
[2018-01-10] MEDS: ACETAMINOPHEN 325 MG TABLET PO PRN (12:55)
--- NOTE | 2018-01-10 14:58 | Ultrasound Report ---
Indication: MINGO PROCEDURE: US renal BI: Encounter: Initial Comparison: None Technique: Grayscale and color Doppler sonographic imaging of both kidneys was performed. FINDINGS: Poor visualization of the left kidney shadowing bowel gas. Both kidneys are present with normal cortical thickness and echogenicity. No gross hydronephrosis or renal mass. The right kidney measures 9.8 cm in length, and the left kidney measures 9.7 cm in length. IMPRESSION: No hydronephrosis. .
[2018-01-11] MEDS: NS 1,000 ML IV SCH ×3 (01:37→18:29)
[2018-01-11] MEDS: ACETAMINOPHEN 325 MG TABLET PO PRN ×2 (02:55→21:51)
[2018-01-11] MEDS: LEVOTHYROXINE 100 MCG TABLET PO SCH (05:43)
[2018-01-11] MEDS: ALBUTEROL/IPRATROPIUM 2.5mg-0.5mg/3ml NEB AEROSOL SCH ×4 (07:30→19:37)
[2018-01-11] MEDS: BUDESONIDE INH.SOLN 0.5mg/2ml NEB AEROSOL SCH (07:30)
[2018-01-11] MEDS: ACETAMINOPHEN 500 MG TABLET PO SCH (09:01)
[2018-01-11] MEDS: RANITIDINE 150 MG TABLET PO SCH ×2 (09:02→21:37)
[2018-01-11] MEDS: AMOX/CLAV 875 MG/125 MG TABLET PO SCH ×2 (09:02→21:38)
[2018-01-11] MEDS: ASPIRIN 81 MG CHEWABLE TABLET PO SCH (09:02)
[2018-01-11] MEDS: SYSTANE EYE DROPS 0.7ml EACH EYE SCH (09:02)
[2018-01-11] MEDS: DOCUSATE CALCIUM 240 MG CAPSULE PO SCH ×2 (09:03→21:38)
[2018-01-11] MEDS: ENOXAPARIN 30 MG/0.3 ML INJECTION SQ SCH (09:03)
--- NOTE | 2018-01-11 14:07 | Fluoroscopy Report ---
Indication:Oropharyngeal Dysphagia Procedure:FL barium swallow modified MODIFIED BAR. SWALLOW STUDY: Videofluoroscopy was performed in conjunction with a life assurance representative from speech pathology and a separate report and recommendations will be provided. Varying gradations of barium from thin to solid were administered. Trace aspiration was noted with thin consistency, as well as nectar consistency when administered with a spoon. Trace tracheal penetration was visualized intermittently throughout the remaining consistencies. No aspiration was visualized with any of the remaining consistencies. On the AP view the bolus showed no obvious preference for either side. Impression: 1. Trace aspiration with thin consistency barium, as well as nectar consistency when administered with a spoon. 2. Intermittent trace penetration with all consistencies. Please see the speech pathology report for additional details and recommendations. Fluoroscopy dose: 7.19 mGy (Cumulative air kerma) Finn Kenney RPA/DELMY performed this under my direct supervision. .
--- NOTE | 2018-01-11 16:07 | Progress Note ---
- Date 01/11/18 Subjective: Arcelia is seen today in follow up, she is pleasantly confused however is difficulty to get a straight answer from the patient. She does continue to complain of left great toe pain. She denies having chest pain, shortness of breath or GI complaints. Her abdomen is noted to be somewhat distended however says "its always like that". Objective Vital signs: Temperature 97.6 F 01/11/18 15:22 Pulse Rate 79 01/11/18 15:22 Respiratory Rate 18 01/11/18 15:22 Blood Pressure 124/67 01/11/18 15:22 Pulse Oximetry 98 01/11/18 15:22 Height/Weight/BMI: Weight 78.1 kg - Constitutional Present: no acute distress, well nourished, well developed - Routine HEENT Exam Eye: Present: EOMI ENT: Present: mucous membranes moist, dentition normal - Routine Respiratory Exam Present: CTA bilaterally. Absent: wheezes - Routine Cardiovascular Exam Present: RRR, S1, S2. Absent: murmur - Routine Abdominal Exam Present: soft, normoactive bowel sounds, distended. Absent: tenderness - Routine Extremities Exam Present: edema (bilateral lower ext) - Routine Skin Exam Present: intact, dry, warm Comments: Drainage from left great toe - Routine Neurological Exam Present: alert, CN II-XII intact, altered mental status - Routine Lymphatic Exam Lymphatic: Absent: adenopathy - Routine Psychiatric Exam Present: cooperative Results - Labs CBC & Chem 7: 01/11/18 04:21 01/11/18 04:21 Assessment and Plan Assessment and Plan: Assessment MINGO (baseline creatinine approx 0.8) Systolic CHF (Echo July 2017: ejection fraction about 35% with moderate mitral, tricuspid regurgitation with moderate pulmonary hypertension, mild aortic stenosis) Left great toenail infection with history of Dermatophytosis Hypoxia of 85% on room air Atrial fibrillation - started on Coumadin in July, but discontinued in August, due to markedly elevated INR of 19.7; briefly on Xarelto followed by [facility] but no anticoagulation since approximately the beginning of November. PVD Pulmonary fibrosis Asthma with COPD Nocturnal oxygen dependency 2.5L Alzheimer's dementia Hypothyroidism/goiter GERD Allergic rhinitis Dysphagia Obesity with BMI 34.6 Plan FENa = 7.1%, consistent with post-renal/obstructive cause of renal failure. Renal sono was normal Continue with IV Fluids for ongoing hydration. Osteopathic Neurologist and BUN continue to improve. Swallow study does revel trace aspiratory recommending nectar thick liquids. Consults placed to Speech, PT and OT Increase bowel motivation- Added PRN MOM Wound team following great toe wound. Continues on PO Augmentin for antimicrobial coverage Follow daily labs DVT Prophylaxis: Lovenox Resuscitation Status: Do Not Resuscitate - Time spent with patient Time with patient PN: 25 minutes - Physician Narrative Physician: Oumar Nelson MD Narrative: Date: 01/11/18 Time: 1819 Have independently interviewed and examined pt. Chart reviewed. Case discussed with CM and my BASKET [employer]KER. Care plan developed with my supervision; agree with above. Doing okay this evening. Breathing feels stable-not having increasing SOA, cough or congestion. No pain with breathing. Appetite fair. No nausea. Lungs: decreased, no distress on RA CV: irregular AB: soft nt/nd MSE: awake alert Plan: Creatinine with decrease to 1.4 - will decrease IVF to 50cc/hr. Add SCD to help minimize lower ext edema. Recheck CXR in am to evaluate for developing pulm edema due to IVF use. Continue with Augment for skin coverage of toe. Monitor lab. PT/OT to help improve functional status. Hospital Course Summary Disclaimer: The visit summary below is not to be considered part of the above Progress Note. Hospital Course: 01/09/18 Admit, observation status under the hospitalist service. Dr. Loera attending. MINGO - start IVF, NS at 100 mL/hr. Hold Lasix, metolazone, and enalapril. Check postvoid residuals. May need further w/u. Toe infection - start Augmentin BID. (reported allergy to cefdinir is "nausea") . Tylenol PRN. CHF/A-fib/dyspnea & hypoxia/poorly defined chest pain - trop x3, proBNP, CXR, EKG, tele, daily weights COPD/pulm fibrosis - continue breathing treatments. Dysphagia - modified cardiac diet, consult speech therapy. GERD - start Zantac BID. (allergy to PPI is "stomach cramps") Code status - DNR. Hemoglobin 14.1 but likely hemoconcentrated, potassium 4.1, carbon dioxide 32- likely represents contraction alkalosis. BUN 116-significantly higher than 4 months ago and creatinine has nearly tripled since late July. ProBNP 1120 Chest x-ray by my review with cardiomegaly and minor prominence of the vascular markings. Venous Doppler left lower extremity negative for DVT. Acute kidney injury in conjunction with systolic heart failure/cardiomyopathy- history compatible with prerenal azotemia due to diuresis/dehydration but exam suggest patient is still volume overloaded with significant lower extremity edema. Hold diuretics, hydrate gently, monitor oxygenation closely. Both EKG and telemetry consistent with atrial fibrillation-will discuss with Dr. oDdge tomorrow morning when he is available. Given combined evidence of heart failure and acute renal failure patient will need to be monitored closely and hospitalization anticipated be more than 48 hours to minimize risk of decompensating heart failure while treating renal failure. Converted to inpatient status. 01/10/18 FENa = 7.1%, consistent with post-renal/obstructive cause of renal failure. Post void residuals have been <200 mL. Order renal sono to look for hydro. BUN/creatinine improving with holding diuretics and IVF. Creatinine down to 1.6. Reduce rate of IVF to 75 mL/hr. May need to resume partial diuretic dosing soon given CHF hx. Resp status stable. Wound care evaluated left great toe and recommends to "apply A&D ointment under nail to soften crust, cover with nonadhesive pad, wrap with gauze, change daily and PRN". Toe is less tender/erythematous compared to yesterday. Denied chest pain today - trop neg x3. Dr. Loera planning on discussing A- fib treatment/anticoagulation with Dr. Dodge. CXR reported new pulmonary nodules & recommend noncontrast chest CT for further evaluation. Of note, CXR reports from [facility] in Jul, 2017 do not mention pulmonary nodules. Discussed with nursing - no immediate concerns. 01/11/18 FENa = 7.1%, consistent with post-renal/obstructive cause of renal failure. Renal sonogram was normal. Continue with IV Fluids for ongoing hydration, decreasing to 50cc/hr. Osteopathic Neurologist and BUN continue to improve. Swallow study does revel trace aspiratory recommending nectar thick liquids. Consults placed to Speech, PT and OT. Increase bowel motivation- Added PRN MOM. Wound team following great toe wound. Continues on PO Augmentin for antimicrobial coverage. Follow daily labs.
[2018-01-12] MEDS: MORPHINE SULFATE 2mg INJECTION IVP PRN ×2 (00:45→03:54)
[2018-01-12] MEDS: LEVOTHYROXINE 100 MCG TABLET PO SCH (06:08)
[2018-01-12] MEDS ORDERED: MORPHINE SULFATE 4mg INJECTION IVP PRN (07:15)
[2018-01-12] MEDS: BUDESONIDE INH.SOLN 0.5mg/2ml NEB AEROSOL SCH (07:41)
[2018-01-12] MEDS: ALBUTEROL/IPRATROPIUM 2.5mg-0.5mg/3ml NEB AEROSOL SCH ×4 (07:41→19:01)
[2018-01-12] MEDS: ENOXAPARIN 30 MG/0.3 ML INJECTION SQ SCH (08:26)
[2018-01-12] MEDS: SYSTANE EYE DROPS 0.7ml EACH EYE SCH (08:27)
[2018-01-12] MEDS: RANITIDINE 150 MG TABLET PO SCH ×2 (08:27→20:20)
[2018-01-12] MEDS: AMOX/CLAV 875 MG/125 MG TABLET PO SCH ×2 (08:27→20:20)
[2018-01-12] MEDS: ASPIRIN 81 MG CHEWABLE TABLET PO SCH (08:27)
[2018-01-12] MEDS: ACETAMINOPHEN 500 MG TABLET PO SCH (08:27)
[2018-01-12] MEDS: DOCUSATE CALCIUM 240 MG CAPSULE PO SCH ×3 (08:27→20:35)
[2018-01-12] MEDS: NS 1,000 ML IV SCH (09:53)
--- NOTE | 2018-01-12 10:09 | XRay Report ---
INDICATION: F/U PROCEDURE: CHEST 2-VIEWS UPRIGHT (PA & LAT) Encounter: Initial COMPARISON: January 09, 2018 FINDINGS: Nodular opacity in the left midlung is unchanged. Trace pleural effusions. No pneumothorax. Hyperinflation. No new or worsening consolidation. Heart size and mediastinal contours are stable. Pulmonary vascular markings are slightly prominent. Impression: Mild pulmonary vascular congestion or edema. .
[2018-01-12] MEDS ORDERED: FUROSEMIDE 40 MG TABLET PO SCH (13:15)
--- NOTE | 2018-01-12 14:28 | Progress Note ---
- Date 01/12/18 Subjective: Arcelia is seen today in follow up. She is alert, pleasantly confused. She is working with PT and is laughing during her therapy. She is a bit SOA with activity, which she admits to. She reports otherwise feeling well. No other acute c/o reported. Chart is reviewed for collateral information. Objective Vital signs: Temperature 96.5 F L 01/12/18 08:14 Pulse Rate 96 01/12/18 08:14 Respiratory Rate 16 01/12/18 10:36 Blood Pressure 150/86 H 01/12/18 08:15 Pulse Oximetry 96 01/12/18 10:36 Rhythm: Atrial Fibrillation with Normal Ventricular Rate (Wide complex rhythm with occasional PVCs- I reviewed tele. ) Height/Weight/BMI: Weight 80.1 kg - Constitutional Present: mild distress, obese, cooperative - Routine HEENT Exam Head: Present: normocephalic, atraumatic Eye: Present: EOMI, PERRL ENT: Present: mucous membranes moist - Routine Respiratory Exam Present: dyspnea, decreased breath sounds. Absent: rales, rhonchi, crackles - Routine Cardiovascular Exam Present: RRR, S1, S2, murmur - Routine Abdominal Exam Present: soft, normoactive bowel sounds, non tender, distended - Routine Extremities Exam Present: edema (Marked pitting bilateral LE edema. ), non tender - Routine Musculoskeletal Exam Musculoskeletal: Present: moving extremities well - Routine Skin Exam Present: intact, erythema (Bilateral LE, mild), warm - Routine Neurological Exam Present: alert, moving all extremities - Routine Psychiatric Exam Present: cooperative Comments: Confused, pleasant. Results - Labs CBC & Chem 7: 01/11/18 04:21 01/12/18 10:06 - Imaging and Cardiology Chest x-ray Additional comments: FINDINGS: Nodular opacity in the left midlung is unchanged. Trace pleural effusions. No pneumothorax. Hyperinflation. No new or worsening consolidation. Heart size and mediastinal contours are stable. Pulmonary vascular markings are slightly prominent. Impression: Mild pulmonary vascular congestion or edema. . Assessment and Plan (1) Acute renal insufficiency Current visit: Yes Status: Acute Assessment and Plan: Assessment MINGO (baseline creatinine approx 0.8) Systolic CHF (Echo July 2017: ejection fraction about 35% with moderate mitral, tricuspid regurgitation with moderate pulmonary hypertension, mild aortic stenosis) Left great toenail infection with history of Dermatophytosis Hypoxia of 85% on room air Atrial fibrillation - started on Coumadin in July, but discontinued in August, due to markedly elevated INR of 19.7; briefly on Xarelto followed by Luba but no anticoagulation since approximately the beginning of November. PVD Pulmonary fibrosis Asthma with COPD Nocturnal oxygen dependency 2.5L Alzheimer's dementia Hypothyroidism/goiter GERD Allergic rhinitis Dysphagia Obesity with BMI 34.6 Plan Weight is trending up. She continues to appear fluid overloaded and is SOA with activity. Will adjust Lasix to 40mg AM, 20mg PM. Could consider adding a PRN or weekly dose of metolazone instead of daily dosing. Also could consider changing her from enalapril to Entresto to help with HFrEF. Agree with HH, as it does not appear that med compliance is adequate given her HF and dementia. Ongoing concern for aspiration- altered diet. Possible new pulmonary nodule- consider CT of chest (noncontrast per radiology) . Continue supportive care for dementia. Continue Augmentin, wound care following for toe wound. No other acute c/o reported. DVT Prophylaxis: Luba Resuscitation Status: Do Not Resuscitate - Time spent with patient Time with patient PN: 35 minutes - Physician Narrative Physician: Oumar Nelson MD Narrative: Date: 01/12/18 Time: 1657 Have independently interviewed and examined pt. Chart reviewed. Case discussed with CM, Dr Dodge and my [employer]. Care plan developed with my supervision; agree with above. Doing okay. Feels breathing stable-not having increased SOA, cough, or congestion. No pain with breathing. Did have episode of chest pain this am. Troponin without elevation. Appetite fair-not feeling hungry. Bowels feel slow. No urinary pain or discomfort, but notes incontinence. No f/c. Lungs: decreased, no crackles or wheeze CV: irregular AB: soft obese, nt +BS EXT: +2 BLE MSE: awake alert Plan: Creatinine improved - will stop IVF, can restart enalapril but will decrease to 5mg initially. Discussed with Dr Dodge about afib. As still in afib he recommends stopping amiodarone. Recommends against use of digoxin as has had bradycardia in past. Agrees with Eliquis use. Lasix to help control volume status. Routine Miralax to help stools - MOM was daily at home (changed to prn due to MINGO and Mg upper limits of normal). Home health being set up for discharge. Monitor lab. Continue with care. Still needing close monitoring of Cardiopulmonary status and lab monitoring. Hospital Course Summary Disclaimer: The visit summary below is not to be considered part of the above Progress Note. Hospital Course: 01/09/18 Admit, observation status under the hospitalist service. Dr. Loera attending. MINGO - start IVF, NS at 100 mL/hr. Hold Lasix, metolazone, and enalapril. Check postvoid residuals. May need further w/u. Toe infection - start Augmentin BID. (reported allergy to cefdinir is "nausea") . Tylenol PRN. CHF/A-fib/dyspnea & hypoxia/poorly defined chest pain - trop x3, proBNP, CXR, EKG, tele, daily weights COPD/pulm fibrosis - continue breathing treatments. Dysphagia - modified cardiac diet, consult speech therapy. GERD - start Zantac BID. (allergy to PPI is "stomach cramps") Code status - DNR. Hemoglobin 14.1 but likely hemoconcentrated, potassium 4.1, carbon dioxide 32- likely represents contraction alkalosis. BUN 116-significantly higher than 4 months ago and creatinine has nearly tripled since late July. ProBNP 1120 Chest x-ray by my review with cardiomegaly and minor prominence of the vascular markings. Venous Doppler left lower extremity negative for DVT. Acute kidney injury in conjunction with systolic heart failure/cardiomyopathy- history compatible with prerenal azotemia due to diuresis/dehydration but exam suggest patient is still volume overloaded with significant lower extremity edema. Hold diuretics, hydrate gently, monitor oxygenation closely. Both EKG and telemetry consistent with atrial fibrillation-will discuss with Dr. Dodge tomorrow morning when he is available. Given combined evidence of heart failure and acute renal failure patient will need to be monitored closely and hospitalization anticipated be more than 48 hours to minimize risk of decompensating heart failure while treating renal failure. Converted to inpatient status. 01/10/18 FENa = 7.1%, consistent with post-renal/obstructive cause of renal failure. Post void residuals have been <200 mL. Order renal sono to look for hydro. BUN/creatinine improving with holding diuretics and IVF. Creatinine down to 1.6. Reduce rate of IVF to 75 mL/hr. May need to resume partial diuretic dosing soon given CHF hx. Resp status stable. Wound care evaluated left great toe and recommends to "apply A&D ointment under nail to soften crust, cover with nonadhesive pad, wrap with gauze, change daily and PRN". Toe is less tender/erythematous compared to yesterday. Denied chest pain today - trop neg x3. Dr. Loera planning on discussing A- fib treatment/anticoagulation with Dr. Dodge. CXR reported new pulmonary nodules & recommend noncontrast chest CT for further evaluation. Of note, CXR reports from [facility] in Jul, 2017 do not mention pulmonary nodules. Discussed with nursing - no immediate concerns. 01/11/18 FENa = 7.1%, consistent with post-renal/obstructive cause of renal failure. Renal sonogram was normal. Continue with IV Fluids for ongoing hydration, decreasing to 50cc/hr. Assistant Store Manager and BUN continue to improve. Swallow study does revel trace aspiratory recommending nectar thick liquids. Consults placed to Speech, PT and OT. Increase bowel motivation- Added PRN MOM. Wound team following great toe wound. Continues on PO Augmentin for antimicrobial coverage. 01/12/18 Weight is trending up. She continues to appear fluid overloaded and is SOA with activity. Creatinine improved to 1.1. Will start Lasix to 40mg AM, 20mg PM. Restart enalapril, but at 5mg daily due to resolving MINGO. Discussed with Dr Davila. As patient still in afib he recommends stopping amiodarone. He would avoid dioxin as patient has had bradycardia in past. Does encourage continuation of Eliquis. Will start routine Miralax to help bowel function. Agree with HH, as it does not appear that med compliance is adequate given her HF and dementia. Ongoing concern for aspiration- altered diet. Continue supportive care for dementia. Continue Augmentin, wound care following for toe wound.
[2018-01-12] MEDS ORDERED: FALL RISK - PHARMACY CONSULT MC ONE (15:12)
[2018-01-12] MEDS: FUROSEMIDE 40 MG TABLET PO SCH (16:43)
[2018-01-12] MEDS ORDERED: BISACODYL 10 MG SUPPOSITORY RECTALLY PRN (16:57)
[2018-01-12] MEDS: POLYETHYL GLYCOL 3350 17gm PACKET PO SCH (18:04)
[2018-01-12] MEDS: APIXABAN 2.5 MG TABLET PO SCH (20:20)
[2018-01-12] MEDS: CALCIUM 500 + VIT D 200 TABLET PO SCH ×2 (20:20→20:35)
[2018-01-12] MEDS ORDERED: ALBUTEROL 2.5mg/3ml (0.083%) NEB AEROSOL PRN (23:44)
[2018-01-13] MEDS: LEVOTHYROXINE 100 MCG TABLET PO SCH (06:31)
[2018-01-13] MEDS: BUDESONIDE INH.SOLN 0.5mg/2ml NEB AEROSOL SCH (07:20)
[2018-01-13] MEDS: ALBUTEROL/IPRATROPIUM 2.5mg-0.5mg/3ml NEB AEROSOL SCH ×3 (07:20→15:33)
[2018-01-13 07:35] VITALS: BP 134/69; TEMP 99.1
[2018-01-13] MEDS: ACETAMINOPHEN 500 MG TABLET PO SCH (09:11)
[2018-01-13] MEDS: ASPIRIN 81 MG CHEWABLE TABLET PO SCH (09:12)
[2018-01-13] MEDS: AMOX/CLAV 875 MG/125 MG TABLET PO SCH (09:12)
[2018-01-13] MEDS: RANITIDINE 150 MG TABLET PO SCH (09:12)
[2018-01-13] MEDS: DOCUSATE CALCIUM 240 MG CAPSULE PO SCH (09:12)
[2018-01-13] MEDS: APIXABAN 2.5 MG TABLET PO SCH (09:12)
[2018-01-13] MEDS: FUROSEMIDE 40 MG TABLET PO SCH (09:13)
[2018-01-13] MEDS: POLYETHYL GLYCOL 3350 17gm PACKET PO SCH (09:14)
[2018-01-13 12:16] VITALS: RESP 20; O2SAT 95
[2018-01-13 12:54] VITALS: PULSE 95
--- NOTE | 2018-01-13 13:54 | Progress Note ---
- Date 01/13/18 Subjective: F/U: MINGO, Systolic CHF, Left great toenail infection Doing well overall. Breathing stable-not having increasing SOA cough or congestion. No pain with breathing. Denies chest pressure or discomfort. Eating well. Bowels moving (had several stools overnight secondary to medications given ). No f/c. Strength stable. Objective Vital signs: Temperature 99.1 F 01/13/18 07:34 Pulse Rate 95 01/13/18 08:00 Respiratory Rate 20 01/13/18 12:00 Blood Pressure 134/69 01/13/18 07:34 Pulse Oximetry 95 01/13/18 12:00 Rhythm: Atrial Fibrillation with Normal Ventricular Rate (Wide complex rhythm with occasional PVCs- I reviewed tele. ) Height/Weight/BMI: Weight 80.1 kg - Constitutional Present: well nourished, well developed, average body habitus, obese, cooperative - Routine HEENT Exam Head: Present: normocephalic, atraumatic Eye: Present: EOMI, PERRL ENT: Present: mucous membranes moist - Routine Respiratory Exam Present: decreased breath sounds. Absent: rales, respiratory distress, wheezes - Routine Cardiovascular Exam Present: irregular rhythm, irregularly irregular - Routine Abdominal Exam Present: soft, normoactive bowel sounds, non distended, non tender. Absent: guarding - Routine Extremities Exam Present: edema (+2 BLE). Absent: cyanosis, clubbing - Routine Musculoskeletal Exam Musculoskeletal: Present: no clubbing or cyanosis - Routine Skin Exam Present: intact, dry, warm - Routine Neurological Exam Present: alert, CN II-XII intact, moving all extremities, vision grossly intact , hearing grossly intact, normal speech. Absent: motor deficit, altered mental status - Routine Psychiatric Exam Present: normal affect, cooperative Results - Labs CBC & Chem 7: 01/13/18 04:42 01/13/18 04:42 Assessment and Plan (1) Acute renal insufficiency Current visit: Yes Status: Acute Assessment and Plan: Assessment MINGO (baseline creatinine approx 0.8) Chronic Systolic CHF - (Echo July 2017: ejection fraction about 35% with moderate mitral, tricuspid regurgitation with moderate pulmonary hypertension, mild aortic stenosis) Left great toenail infection with history of Dermatophytosis Hypoxia of 85% on room air - resolved Atrial fibrillation PVD Pulmonary fibrosis Asthma with COPD Nocturnal oxygen dependency 2.5L Alzheimer's dementia Hypothyroidism/goiter GERD Allergic rhinitis Dysphagia Obesity with BMI 34.6 Plan Doing well clinically. Heart rate and blood pressure stable. Creatinine with improvement to 1.0. Breathing well on RA. Will discharge to home. Encouraged EDDA Hose/ROXANNE wraps and elevation to help decrease LE edema. Low sodium diet and fluid restriction up to 2 quarts fluid a day due to systolic heart failure. Check weight daily Eliquis 2.5mg BID for anticoagulation. Lasix at 40mg daily with 20mg at 1500. May restart Zaroxlyn. Decrease enalapril to 5mg daily. Stop Amiodarone - patient not to use digoxin. Augmentin 875 BID x 7 more day for skin coverage of toe. F/U with Dr Nunez in 1 week - recommend checking BMP and Mg at that time due to medications. F/U with Dr Dodge in 2 weeks for cardiac evaluation. See orders for details. Case discussed with CM and patient's . Time spent with patient's care and discharge greater than 30 minutes. DVT Prophylaxis: Eliquis Resuscitation Status: Do Not Resuscitate - Physician Narrative Physician: Oumar Nelson MD Narrative: Date: 01/13/18 Time: 1348 Hospital Course Summary Disclaimer: The visit summary below is not to be considered part of the above Progress Note. Hospital Course: 01/09/18 Admit, observation status under the hospitalist service. Dr. Loera attending. MINGO - start IVF, NS at 100 mL/hr. Hold Lasix, metolazone, and enalapril. Check postvoid residuals. May need further w/u. Toe infection - start Augmentin BID. (reported allergy to cefdinir is "nausea") . Tylenol PRN. CHF/A-fib/dyspnea & hypoxia/poorly defined chest pain - trop x3, proBNP, CXR, EKG, tele, daily weights COPD/pulm fibrosis - continue breathing treatments. Dysphagia - modified cardiac diet, consult speech therapy. GERD - start Zantac BID. (allergy to PPI is "stomach cramps") Code status - DNR. Hemoglobin 14.1 but likely hemoconcentrated, potassium 4.1, carbon dioxide 32- likely represents contraction alkalosis. BUN 116-significantly higher than 4 months ago and creatinine has nearly tripled since late July. ProBNP 1120 Chest x-ray by my review with cardiomegaly and minor prominence of the vascular markings. Venous Doppler left lower extremity negative for DVT. Acute kidney injury in conjunction with systolic heart failure/cardiomyopathy- history compatible with prerenal azotemia due to diuresis/dehydration but exam suggest patient is still volume overloaded with significant lower extremity edema. Hold diuretics, hydrate gently, monitor oxygenation closely. Both EKG and telemetry consistent with atrial fibrillation-will discuss with Dr. Dodge tomorrow morning when he is available. Given combined evidence of heart failure and acute renal failure patient will need to be monitored closely and hospitalization anticipated be more than 48 hours to minimize risk of decompensating heart failure while treating renal failure. Converted to inpatient status. 01/10/18 FENa = 7.1%, consistent with post-renal/obstructive cause of renal failure. Post void residuals have been <200 mL. Order renal sono to look for hydro. BUN/creatinine improving with holding diuretics and IVF. Creatinine down to 1.6. Reduce rate of IVF to 75 mL/hr. May need to resume partial diuretic dosing soon given CHF hx. Resp status stable. Wound care evaluated left great toe and recommends to "apply A&D ointment under nail to soften crust, cover with nonadhesive pad, wrap with gauze, change daily and PRN". Toe is less tender/erythematous compared to yesterday. Denied chest pain today - trop neg x3. Dr. Loera planning on discussing A- fib treatment/anticoagulation with Dr. Dodge. CXR reported new pulmonary nodules & recommend noncontrast chest CT for further evaluation. Of note, CXR reports from [facility] in Jul, 2017 do not mention pulmonary nodules. Discussed with nursing - no immediate concerns. 01/11/18 FENa = 7.1%, consistent with post-renal/obstructive cause of renal failure. Renal sonogram was normal. Continue with IV Fluids for ongoing hydration, decreasing to 50cc/hr. 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 Swallow study does revel trace aspiratory recommending nectar thick liquids. Consults placed to Speech, PT and OT. Increase bowel motivation- Added PRN MOM. Wound team following great toe wound. Continues on PO Augmentin for antimicrobial coverage. 01/12/18 Weight is trending up. She continues to appear fluid overloaded and is SOA with activity. Creatinine improved to 1.1. Will start Lasix to 40mg AM, 20mg PM. Restart enalapril, but at 5mg daily due to resolving MINGO. Discussed with Dr Davila. As patient still in afib he recommends stopping amiodarone. He would avoid dioxin as patient has had bradycardia in past. Does encourage continuation of Eliquis. Will start routine Miralax to help bowel function. Agree with HH, as it does not appear that med compliance is adequate given her HF and dementia. Ongoing concern for aspiration- altered diet. Continue supportive care for dementia. Continue Augmentin, wound care following for toe wound. 01/13/18 Doing well clinically. Heart rate and blood pressure stable. Creatinine with improvement to 1.0. Breathing well on RA. Will discharge to home. Encouraged EDDA Hose/ROXANNE wraps and elevation to help decrease LE edema. Low sodium diet and fluid restriction up to 2 quarts fluid a day due to systolic heart failure. Check weight daily Eliquis 2.5mg BID for anticoagulation. Lasix at 40mg daily with 20mg at 1500. May restart Zaroxlyn. Decrease enalapril to 5mg daily. Stop Amiodarone - patient not to use digoxin. Augmentin 875 BID x 7 more day for skin coverage of toe. F/U with Dr Nunez in 1 week - recommend checking BMP and Mg at that time due to medications. F/U with Dr Dodge in 2 weeks for cardiac evaluation. See orders for details.
--- NOTE | 2018-01-13 17:22 | Discharge Summary ---
Discharge Information Date of admission: 01/09/18 18:09 Anticipated date of discharge: 01/13/18 Attending Physician: Oumar Nelson MD Primary care physician: Rickie Nunez MD Consults: [facility] Consult [CONS] Routine - Discharge Diagnosis (1) Acute renal insufficiency Status: Acute Discharge diagnosis Acute kidney injury Associated conditions and complications Chronic Systolic CHF - Echo July 2017: ejection fraction about 35% Left great toenail infection with history of Dermatophytosis Hypoxia of 85% on room air - resolved Nodular opacity in the left midlung Atrial fibrillation PVD Moderate pulmonary hypertension Moderate mitral Tricuspid regurgitation Mild aortic stenosis Pulmonary fibrosis Asthma with COPD Nocturnal oxygen dependency 2.5L Alzheimer's dementia Hypothyroidism/goiter GERD Allergic rhinitis Dysphagia Obesity with BMI 34.6 - Laboratory Labs: Admit Lab 01/09/18 12:20 WBC 6.6 Hgb 14.1 Hct 41.0 MCV 91.7 Plt Count 180 Neut % (Auto) 64.0 Lymph % (Auto) 24.4 [place] % (Auto) 8.3 Eos % (Auto) 2.9 Baso % (Auto) 0.2 Admit Lab 01/09/18 01/09/18 12:20 12:20 Sodium 139 Potassium 4.1 Chloride 91 L Carbon Dioxide 32 H Anion Gap 16 H BUN 116.0 H* Creatinine 2.0 H GFR Calculation 24 BUN/Creatinine Ratio 58 H Glucose 115 H Calculated Osmolality 306 H Calcium 11.5 H Total Bilirubin 0.70 AST 23 ALT 20 Alkaline Phosphatase 60 Troponin I 0.025 Total Protein 8.3 H Albumin 4.6 Globulin 3.7 H Albumin/Globulin Ratio 1.2 01/13/18 04:42 01/13/18 04:42 - Radiology Radiology: Date of Exam: 01/09/18 Type of Exam: US venous Doppler LE LT Findings: There is no evidence for acute deep venous thrombosis in the left thigh. Specifically, serial graded compression was performed from the inguinal ligament to the popliteal bifurcation, on the left thigh, demonstrating appropriate compressibility of the deep venous system. In addition, color and pulsed Doppler demonstrate appropriate spontaneous flow, variation with respiration, and augmentation with calf compression. At the ankle, normal flow is identified in the posterior tibial veins; these vessels are also normal in caliber. Impression: No evidence of acute DVT in the left lower limb. Date of Exam: 01/09/18 Type of Exam: XR chest 1V FINDINGS: There is a new ill-defined density in the medial right apex and a oval 1.6 cm nodule in the left midlung. No pneumonia, pleural effusion or pneumothorax. Heart size and mediastinal contours are stable. Pulmonary vascularity is normal. Impression: Apparently new pulmonary nodules. Recommend noncontrast chest CT for further evaluation. Date of Exam: 01/10/18 Type of Exam: US renal BI FINDINGS: Poor visualization of the left kidney shadowing bowel gas. Both kidneys are present with normal cortical thickness and echogenicity. No gross hydronephrosis or renal mass. The right kidney measures 9.8 cm in length, and the left kidney measures 9.7 cm in length. IMPRESSION: No hydronephrosis. Date of Exam: 01/11/18 Type of Exam: FL barium swallow modified Videofluoroscopy was performed in conjunction with a customer solutions representative from speech pathology and a separate report and recommendations will be provided. Varying gradations of barium from thin to solid were administered. Trace aspiration was noted with thin consistency, as well as nectar consistency when administered with a spoon. Trace tracheal penetration was visualized intermittently throughout the remaining consistencies. No aspiration was visualized with any of the remaining consistencies. On the AP view the bolus showed no obvious preference for either side. Impression: 1. Trace aspiration with thin consistency barium, as well as nectar consistency when administered with a spoon. 2. Intermittent trace penetration with all consistencies. Please see the speech pathology report for additional details and recommendations. Date of Exam: 01/12/18 Type of Exam: XR chest 2V FINDINGS: Nodular opacity in the left midlung is unchanged. Trace pleural effusions. No pneumothorax. Hyperinflation. No new or worsening consolidation. Heart size and mediastinal contours are stable. Pulmonary vascular markings are slightly prominent. Impression: Mild pulmonary vascular congestion or edema. History of Present Illness HPI: Arcelia Simmons is an 82 year old woman who lives at home with her . She has a history of Alzheimer's and since being hospitalized at [facility] in July, for A-fib, her memory took a drastic decline. Most of the history was obtained from her . She's had problems with her left great toe for several months, and a few days ago it started draining pus. They've been soaking it in Epsom salt, but it began to turn red and the pain increased. This was the original reason that she was taken to the ED on 01/09/18. However, her recently cut back on her diuretics -- she had been Rx Lasix 80 mg BID + Metolazone 2.5 mg daily in August, by Dr. Pizarro. Her didn't think she needed quite that much so he cut her dose of Lasix down to 60 mg BID. Arcelia reports that she's had increased SOA as well. She was placed on oxygen in the ED b/c of room air sat of 85%. At home, she only uses nocturnal oxygen at 2.5L. She reports chest pain but adds that she frequently has it b/c of acid reflux. She complains of chronic abdominal pain and on palpation she moaned loudly - both her and her son state that is a typical response. She has had problems with bright red rectal bleeding and they think she might have hemorrhoids - however this was some time ago. She also has a tendency towards constipation. She complains of being chilled but denies fevers or sweating. She denies palpitations, dizziness, or weakness. She has paresthesias in her toes. She uses a walker to ambulate and denies any recent falls - her last one was several weeks ago. She denies any cough or URI symptoms. She urinates frequently and is incontinent. Over the last few months, her leg swelling has improved significantly. The ED practitioner checked labs and found MINGO with BUN of 116 and creatinine of 2.0. In July, creatinine was 0.74, in August 2017 it was 0.82, and in November, it was 1.45. She also had hypercalcemia with a calcium level of 11.5. For complete details of the H&P refer to that document. Objective Vital signs: Temperature 99.1 F 01/13/18 07:34 Pulse Rate 95 01/13/18 08:00 Respiratory Rate 20 01/13/18 12:00 Blood Pressure 134/69 01/13/18 07:34 Pulse Oximetry 95 01/13/18 12:00 Rhythm: Atrial Fibrillation with Normal Ventricular Rate (Wide complex rhythm with occasional PVCs- I reviewed tele. ) Height/Weight/BMI: Weight 80.1 kg Hospital Course This is a general summary of the patient's hospital course. For more details refer to the complete medical record. Hospital course: 01/09/18 Admit, observation status under the hospitalist service. Dr. Loera attending. MINGO - start IVF, NS at 100 mL/hr. Hold Lasix, metolazone, and enalapril. Check postvoid residuals. May need further w/u. Toe infection - start Augmentin BID. (reported allergy to cefdinir is "nausea") . Tylenol PRN. CHF/A-fib/dyspnea & hypoxia/poorly defined chest pain - trop x3, proBNP, CXR, EKG, tele, daily weights COPD/pulm fibrosis - continue breathing treatments. Dysphagia - modified cardiac diet, consult speech therapy. GERD - start Zantac BID. (allergy to PPI is "stomach cramps") Code status - DNR. Hemoglobin 14.1 but likely hemoconcentrated, potassium 4.1, carbon dioxide 32- likely represents contraction alkalosis. BUN 116-significantly higher than 4 months ago and creatinine has nearly tripled since late July. ProBNP 1120 Chest x-ray by my review with cardiomegaly and minor prominence of the vascular markings. Venous Doppler left lower extremity negative for DVT. Acute kidney injury in conjunction with systolic heart failure/cardiomyopathy- history compatible with prerenal azotemia due to diuresis/dehydration but exam suggest patient is still volume overloaded with significant lower extremity edema. Hold diuretics, hydrate gently, monitor oxygenation closely. Both EKG and telemetry consistent with atrial fibrillation-will discuss with Dr. Dodge tomorrow morning when he is available. Given combined evidence of heart failure and acute renal failure patient will need to be monitored closely and hospitalization anticipated be more than 48 hours to minimize risk of decompensating heart failure while treating renal failure. Converted to inpatient status. 01/10/18 FENa = 7.1%, consistent with post-renal/obstructive cause of renal failure. Post void residuals have been <200 mL. Order renal sono to look for hydro. BUN/creatinine improving with holding diuretics and IVF. Creatinine down to 1.6. Reduce rate of IVF to 75 mL/hr. May need to resume partial diuretic dosing soon given CHF hx. Resp status stable. Wound care evaluated left great toe and recommends to "apply A&D ointment under nail to soften crust, cover with nonadhesive pad, wrap with gauze, change daily and PRN". Toe is less tender/erythematous compared to yesterday. Denied chest pain today - trop neg x3. Dr. Loera planning on discussing A- fib treatment/anticoagulation with Dr. Dodge. CXR reported new pulmonary nodules & recommend noncontrast chest CT for further evaluation. Of note, CXR reports from [facility] in Jul, 2017 do not mention pulmonary nodules. Discussed with nursing - no immediate concerns. 01/11/18 FENa = 7.1%, consistent with post-renal/obstructive cause of renal failure. Renal sonogram was normal. Continue with IV Fluids for ongoing hydration, decreasing to 50cc/hr. 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 Swallow study does revel trace aspiratory recommending nectar thick liquids. Consults placed to Speech, PT and OT. Increase bowel motivation- Added PRN MOM. Wound team following great toe wound. Continues on PO Augmentin for antimicrobial coverage. 01/12/18 Weight is trending up. She continues to appear fluid overloaded and is SOA with activity. Creatinine improved to 1.1. Will start Lasix to 40mg AM, 20mg PM. Restart enalapril, but at 5mg daily due to resolving MINGO. Discussed with Dr Davila. As patient still in afib he recommends stopping amiodarone. He would avoid dioxin as patient has had bradycardia in past. Does encourage continuation of Eliquis. Will start routine Miralax to help bowel function. Agree with HH, as it does not appear that med compliance is adequate given her HF and dementia. Ongoing concern for aspiration- altered diet. Continue supportive care for dementia. Continue Augmentin, wound care following for toe wound. 01/13/18 Doing well clinically. Heart rate and blood pressure stable. Creatinine with improvement to 1.0. Breathing well on RA. Will discharge to home. Encouraged EDDA Hose/ROXANNE wraps and elevation to help decrease LE edema. Low sodium diet and fluid restriction up to 2 quarts fluid a day due to systolic heart failure. Check weight daily Eliquis 2.5mg BID for anticoagulation. Lasix at 40mg daily with 20mg at 1500. May restart Zaroxlyn. Decrease enalapril to 5mg daily. Stop Amiodarone - patient not to use digoxin. Augmentin 875 BID x 7 more day for skin coverage of toe. F/U with Dr Nunez in 1 week - recommend checking BMP and Mg at that time due to medications. F/U with Dr Dodge in 2 weeks for cardiac evaluation. See orders for details. Time spent with patient: discharge greater than 30 minutes Resuscitation Status: Do Not Resuscitate Discharge Plan - Discharge Disposition Discharge Date: 01/13/18 Disposition: [facility] Home Health Service *Condition: Stable Reason For Visit (Visit label in EMR): Renal insufficiency,dehydration,hypoxia - Discharge Medications *Discharge Medications: New Amoxicillin/Potassium Clav [Amox-Clav 875-125 mg Tablet] 875 mg PO Q12HR #14 tab Apixaban [Eliquis] 2.5 mg PO BID #60 tab Bisacodyl Supp [Dulcolax] 10 mg RECTALLY DAILY PRN suppositor PRN Reason: Constipation PEG 3350 17gm PACKET [Miralax] 17 gm PO DAILY packet Furosemide [Lasix 40 mg Tab] 40 mg PO DAILY #45 tab Continue Levothyroxine Tab [Synthroid] 100 mcg PO ACB Acetaminophen [Tylenol] 500 mg PO DAILY Propylene Glycol/Peg 400 [Systane 0.3-0.4% Eye Drops] 1 drop EACH EYE DAILY Calcium Citrate/Vitamin D3 [Calcium Citrate - Vit D Caplet] 1 each PO HS Albuterol HFA Inhaler [Ventolin Hfa 90 mcg/actuation] 2 puff ORAL INH Q4HR PRN PRN Reason: Shortness Of Air/Wheezing Budesonide Inhalation [Pulmicort Inhalation] 0.5 mg INH DAILY PRN PRN Reason: Shortness Of Air Metolazone [Zaroxolyn] 2.5 mg PO DAILY Aspirin Chewable [ASA] 81 mg PO DAILY Multi-Vitamin Plain [Theragran] 1 tab PO DAILY Albuterol/Ipratropium [Duoneb] 1 unit AEROSOL QID Docusate Calcium [Stool Softener] 240 mg PO BID Changed Enalapril [Vasotec] 5 mg PO DAILY #0 Milk of Magnesia [Mom] 30 ml PO DAILY PRN #0 PRN Reason: Constipation Discontinued Furosemide [Lasix 80 mg Tab] 80 mg PO DAILY - Discharge Packet/Instructions *Diet: Low sodium (2 grams or less). May have up to 2 quarts fluid a day *Activity: As tolerated *Pain Management/Treatment: Continue prior home pain medicaitons *Wound Care: Keep toe covered with bandage. Additional Instructions: Use Eliquis 2.5mg twice a day to thin blood. Lasix ( furosemide) dose is 40mg in morning with 20mg at 3pm. Use one half tablet of enalapril daily - 5mg (1/2 of 10mg tablet). Weigh yourself every morning and record weight. Use EDDA hose or ROXANNE wraps to legs. Elevate your legs at rest. *Expected Signs/Symptoms: Stability of breathing. Improvement of functional status. *Notify Physician if: Temp > 100.4. Increasing problems breathing. *During Business Hours Contact: Dr Nunez *After Business Hours Contact: Call [facility] and have Dr Nunez or his covering provider contacted. *Pending Lab/Results: No Pending Lab - Referrals/Follow Up *Referrals/Follow Up: Klaus Dodge [Other] (KEEP APPOINTMENT ON 01/18 AT 11:00. Hosipital follow up for MINGO - medications adjusted. ) Rickie Nunez MD [Primary Care Provider] - 1 Week (OFFICE WILL CALL YOU WITH APPOINTMENT TIME. Hospital follow up for MINGO. Medications adjusted. Has infection of great toe that will need following. Recommend BMP and Mg at that time secondary to medication use. ) - Patient Handouts - Dismissal Complete Discharge Instructions are:: Complete Physician Narrative - Narrative Physician: Oumar Nelson MD Attestation Narrative: Date: 01/13/18 Time: 6567 I have independently interviewed and examined patient prior to discharge. See my progress note for details. Medically stable for discharge to home.
== END 2018-01-13 18:25 | disposition home health service (06) | DRG 683 ==
LOC: ED 10:02 → EDHOLD 10:02 → MED 15:11 → EDHOLD 15:11 → SUATTDRO 18:09
PROVIDERS: ADMIT Internal Medicine; ATTEND Hospitalist